=== PATIENT | male | born 1960 | race Caucasian/White ===

== ENCOUNTER 2020-01-04 07:01 | Emergency (ER) | payer OTHER, SELFPAY ==
--- NOTE | ~2020-01-04 | CT_ITS ---
EXAMINATION: CT abdomen pelvis w con EXAM DATE: 01/04/2020 07:55 INDICATION: Abdominal pain, nausea and vomiting, symptoms 3-4 days. TECHNIQUE: Spiral CT of the abdomen and pelvis was performed following intravenous injection of 100 m L Omnipaque 350. Axial, coronal and sagittal images were reviewed. The dose-length product (DLP) fo r this examination was 308.39 mGy-cm. The exposure was tailored according to patient size (auto mA e xposure control), and iterative reconstruction (ASIR) was used as additional dose reduction technique . Comparison is made to prior examination from 07/29/2018. FINDINGS: The liver, spleen, adrenal glands and pancreas are unremarkable. Gallbladder is unremarkab le. No biliary obstruction. Portal and splenic veins are patent. Kidneys enhance symmetrically. T here is no hydronephrosis. The prostate is unremarkable. The bladder is unremarkable. There is no retroperitoneal or pelvic lymphadenopathy. The appendix is normal. The stomach and small bowel are unremarkable. There is expected amount of c olonic stool. No free intraperitoneal gas. The heart is normal in size. There are no pericardial or pleural effusions. The lung bases are unremarkable. There are no osteoblastic or osteolytic les ions identified. IMPRESSION: 1. No acute intra-abdominal findings. Reviewed, dictated and finalized at location B.
--- NOTE | 2020-01-04 07:04 | ED.NAVMDI ---
HPI - Nausea/Vomiting/Diarrhea General Chief complaint: Nausea/Vomiting/Diarrhea Stated complaint: nausea/vomiting Time Seen by Provider: 01/04/20 07:04 Source: patient and family Mode of arrival: ambulatory Limitations: no limitations History of Present Illness HPI Narrative: Patient is a 59-year-old male with a history of chronic pain, hyperlipidemia, osteoarthritis who presents for evaluation of nausea and vomiting. Patient reports abdominal pain throughout the abdomen that began on Friday. Patient has had 4 days of very limited oral intake due to recurrent nausea and vomiting. No blood present in the vomit. No coffee-ground emesis. Patient denies fever, chills, chest pain, cough or shortness of breath. No recent sick contacts. He denies any diarrhea or constipation. No recent food indiscretions, no recent travel. who lives with him at home is otherwise well without symptoms. Patient states this happened once before a year ago and was attributed to acid reflux. Patient reports pain throughout his abdomen which is dull, aching and cramping in nature. No ripping or tearing sensation to the flank. No urinary symptoms. Related Data Home Medications Medication Instructions Recorded Confirmed tramadol 50 mg tablet 50 mg PO TID PRN tablet 11/12/19 Allergies Allergy/AdvReac Type Severity Reaction Status Date / Time poison yanira extract Allergy Mild Rash Verified 11/12/19 12:57 Review of Systems Review of Systems: Narrative: CONSTITUTIONAL: Denies fever, chills, or sweats. ENT: Denies rhinorrhea, congestion, sore throat CARDIOVASCULAR: Denies chest pain RESPIRATORY: Denies cough or dyspnea. GASTROINTESTINAL: Reports abdominal pain, nausea and vomiting GENITOURINARY: Denies dysuria or hematuria. SKIN: Denies rash or itching. MUSCULOSKELETAL: Denies back pain, joint pain, or myalgia. NEUROLOGIC: Denies headache, numbness, or weakness. [facility] Past Medical History Medical History HLD (hyperlipidemia) Family History Family History (Updated 11/25/13 @ 07:13 by DOCTOR UNKNOWN) Father Family history of pancreatic cancer Family history of aortic aneurysm Social History Social History Smoking packs per day: 1 Smoking cigarettes per day: 20.0 Years smoked: 30 Smoking pack-years: 30.00 Smoking status: Former smoker Tobacco type: cigarettes Second hand tobacco smoke exposure: No Smoking end date: 03/31/12 Alcohol intake: current Substance use: current Substance use type: marijuana Gender identity (if verbalized by the patient): Male Exam Narrative: Exam Narrative: GENERAL: Awake, alert, conversant, mildly uncomfortable appearing HEAD: Normocephalic, atraumatic. EYES: PERRLA and EOMI. ENT: Nares clear, no rhinorrhea or epistaxis. Mucous membranes dry NECK: Supple. CHEST: No respiratory distress, breathing even and non labored HEART: Regular rate, sinus rhythm ABDOMEN:Non distended, tender throughout, nonrigid, mild guarding EXTREMITIES: Normal range of motion. No edema. SKIN: Warm, dry, no rash. NEURO:No focal deficits. Alert and oriented x3 Course Vital Signs Vital signs: Vital Signs Temperature 36.8 C 01/04/20 07:11 Pulse Rate 74 01/04/20 07:11 Respiratory Rate 22 H 01/04/20 07:11 Blood Pressure 118/92 H 01/04/20 07:11 Pulse Oximetry 100 01/04/20 07:11 Temperature 36.8 C 01/04/20 07:11 Pulse Rate 64 01/04/20 09:24 Respiratory Rate 18 01/04/20 09:24 Blood Pressure 147/87 H 01/04/20 09:24 Pulse Oximetry 96 01/04/20 09:24 MDM - Nausea/Vomiting/Diarrhea MDM Narrative Medical decision making narrative: Patient presented for evaluation of abdominal pain, nausea vomiting over the past 4 days. At the time of assessment, patient is clinically, mildly dehydrated appearing. No hypotension, tachycardia, patient is afebrile. Patient
[2020-01-04 07:11] VITALS: BP 118/92; PULSE 74; RESP 22; TEMP 36.8; O2SAT 100
[2020-01-04 07:24] LABS: Basophils Absolute Auto 0.1 K/mm3 (0.0-0.1); Basophils Percent Auto 1.6 % (0.2-1.2); Eosinophils Absolute Auto 0.1 K/mm3 (0-0.3); Eosinophils Percent Auto 0.8 % (0-4.4); Hematocrit 47.5 % (42.0-52.0); Hemoglobin 16.9 g/dL (14.0-18.0); Immature Granulocyte Absolute 0.02 K/mm3 (0.00-0.031); Immature Granulocyte Percent A 0.2 % (0-0.5); Lymphocytes Absolute Auto 1.31 K/mm3 (0.9-3.2); Lymphocytes Percent Auto 15.7 % (18.3-44.2); Mean Corpuscular HGB Conc 35.6 g/dl (32-36); Mean Corpuscular Hemoglobin 29.1 pg (26-34); Mean Corpuscular Volume 81.9 fl (80-100); Mean Platelet Volume 10.9 fl (7.4-10.4); Monocytes Absolute Auto 1.1 K/mm3 (0.1-0.6); Monocytes Percent Auto 13.1 % (2.6-8.5); Neutrophils Absolute Auto 5.7 K/mm3 (1.3-6.7); Neutrophils Percent Auto 68.6 % (45.5-73.1); Platelet Count Result 371 k/mm3 (150-375); Red Cell Distribution Width 12.7 % (11.5-14.5); White Blood Count 8.3 K/mm3 (4.5-10.0)
[2020-01-04] MEDS: MORPHINE SULFATE (*CRX) 4 MG/ML INJ IV PUSH (07:28)
[2020-01-04] MEDS: diphenhydrAMINE HCl INJ 50 MG/ML VIAL 25 MG IV PUSH (07:28)
[2020-01-04] MEDS: ONDANSETRON INJ 4 MG/2 ML VIAL IV PUSH (07:28)
[2020-01-04] MEDS: SODIUM CHLORIDE 0.9% IV 1,000 ML 999 ML IV CONT (07:28)
[2020-01-04 07:36] LABS: Alanine Aminotransferase 24 U/L (4-50); Albumin Level 4.6 g/dL (3.5-5.1); Alkaline Phosphatase 81 U/L (38-126); Anion Gap 15 mmol/L (8-16); Aspartate Amino Transferase 31 U/L (17-59); Bilirubin,Total 1.9 mg/dL (0.2-1.3); Blood Urea Nitrogen 36 mg/dL (9-20); Carbon Dioxide 22 mmol/L (22-30); Chloride 99 mmol/L (98-107); Estimated CRCL calculation 61 ml/min; Estimated Glomerular Filt Rate > 60; Glucose 133 mg/dL (75-110); Lipase 88 U/L (23-300); Potassium 3.2 mmol/L (3.4-5.0); Sodium 136 mmol/L (137-145)
--- NOTE | 2020-01-04 07:36 | PC.NURSE ---
pt informed of need for ua, unable to provide at this time, refusing straight.
--- NOTE | 2020-01-04 07:47 | PC.NURSE ---
pt in ct at this time.
[2020-01-04] MEDS: FAMOTIDINE 20 MG/2 ML VIAL IV PUSH (08:11)
[2020-01-04] MEDS: METOCLOPRAMIDE HCL INJ 10 MG/2 ML VIAL IV PUSH (08:11)
[2020-01-04 08:14] VITALS: BP 137/97; PULSE 59; RESP 18; O2SAT 99
--- NOTE | 2020-01-04 08:15 | PC.NURSE ---
PT AGAIN REMINDED OF NEED FOR UA, REFUSING CATH, URINAL AT BEDSIDE.
[2020-01-04 08:30] VITALS: BP 141/106
[2020-01-04 08:47] LABS: Add Urine Microscopic? YES; Appearance Urine Clear (Clear); Bilirubin Urine Negative (Negative); Blood Urine Negative (Negative); Color Urine Yellow (Yellow); Glucose Urine UA Negative (Negative); Ketones Urine 1+ mg/dL (Negative); Leukocyte Esterase Ur Negative LEU/UL (Negative); Mucus Urine Few /lpf; Nitrate Urine Negative (Negative); Protein Urine Negative (Negative); RBC Urine 0-2 /hpf (0-2); Urobilinogen Urine Negative mg/dL (<2.0); WBC Urine 0-3 /hpf
[2020-01-04 08:57] LABS: Specific Grav Ur > 1.060 (1.001-1.035)
[2020-01-04 09:24] VITALS: BP 147/87; PULSE 64; RESP 18; O2SAT 96
[2020-01-04 10:18] VITALS: BP 138/88; PULSE 65; RESP 16; O2SAT 97
== END 2020-01-04 10:19 | disposition home or self-care (01) ==
PROVIDERS: Emergency Provider Emergency Medicine; PCP Family Medicine
DX: E86.0 Dehydration (principal); R11.2 Nausea with vomiting, unspecified; E78.5 Hyperlipidemia, unspecified; M19.90 Unspecified osteoarthritis, unspecified site; Z87.891 Personal history of nicotine dependence; G89.29 Other chronic pain
CPT/HCPCS: 36415; 74177; 80053; 81001; 83690; 85025; 96361; 96365; 96375; 99284; J1200; J2270; J2405; J2765; J3411; J3475; J7030; J7121; Q9967

== ENCOUNTER 2020-09-29 08:01 | Outpatient (CLI) | payer OTHER, SELFPAY ==
--- NOTE | ~2020-09-29 | XR_ITS ---
EXAMINATION: XR barium swallow DATE: 09/29/2020 08:44 INDICATION: Diaphragmatic hernia without obstruction or gangrene. TECHNIQUE: The patient drank thick barium, gas-producing crystals, and thin barium. Fluoroscopy of th e hypopharynx and esophagus was performed. Fluoroscopy exposure time was 0.4 minutes. The total numbe r of images was 215. The dose-area product was 1.2 Gy-cm^2. COMPARISON: CT abdomen and pelvis 01/04/2020 FINDINGS: There is no mass or stricture of the esophagus. Esophageal motility is normal. There is no hiatal hernia. There was no gastroesophageal reflux with provocative maneuvers. IMPRESSION: 1. Normal esophagram. Reviewed, dictated and finalized at location A. IMPRESSION: 1. Normal esophagram.
== END 2020-09-29 08:02 | disposition home or self-care (01) ==
PROVIDERS: PCP Family Medicine; Visit Provider Nurse Practitioner Family
DX: K44.9 Diaphragmatic hernia without obstruction or gangrene (principal); R10.9 Unspecified abdominal pain
CPT/HCPCS: 74220

== ENCOUNTER → 2020-12-01 08:03 | Outpatient (CLI) | payer OTHER, SELFPAY ==
--- NOTE | ~2020-12-01 | CT_ITS ---
EXAMINATION: CT lung screening DATE: 12/01/2020 08:20 INDICATION: Personal history of nicotine dependence, prior smoker with 35 pack year history TECHNIQUE: Computed tomography (CT) of the chest was performed without intravenous contrast. The dose -length product (DLP) was 133.53 mGy-cm. Automated exposure control and iterative reconstruction tech [employer] were employed. COMPARISON: 02/07/2017 FINDINGS: There is a stable 4 mm subpleural nodule in the right middle lobe. A stable 4 mm nodule is present in the left lung apex. No new pulmonary nodules are identified. Calcified pulmonary nodules a re consistent with old granulomatous disease. The lungs are free of acute opacities. There is no pleu ral effusion or pneumothorax. No pathologically enlarged thoracic lymph nodes are identified. The hea rt size is normal. There is calcified coronary artery atherosclerosis. IMPRESSION: 1. Lung-RADS category 2: Benign appearance or behavior. Continue annual screening with noncontrast lo w-dose chest CT in 12 months. Reviewed, dictated and finalized at location A. IMPRESSION: 1. Lung-RADS category 2: Benign appearance or behavior. Continue annual screeni ng with noncontrast low-dose chest CT in 12 months.
== END ==
PROVIDERS: PCP Family Medicine; Visit Provider Nurse Practitioner Family
DX: Z12.2 Encounter for screening for malignant neoplasm of respiratory organs (principal); Z87.891 Personal history of nicotine dependence
CPT/HCPCS: 71271

== ENCOUNTER 2021-12-13 13:02 | Outpatient (CLI) | payer OTHER, SELFPAY ==
--- NOTE | ~2021-12-13 | CT_ITS ---
EXAMINATION:CT lung screening DATE: 12/13/2021 13:33 INDICATION: Lung cancer screening. Current smoker with 36 pack year history. TECHNIQUE: Computed tomography (CT) of the chest was performed without intravenous contrast. Automate d exposure control and iterative reconstruction technique were employed. The dose-length product (DLP ) was 117.82 mGy-cm. COMPARISON: Chest CT 12/01/2020 FINDINGS: There is stable mild scarring at the lung apices. There is mild emphysema. There is stable mild scarring in paraspinal right lower lobe. There is a single 3 mm nodule in right middle lobe. Rubén cified left lung nodules are consistent with old granulomatous disease. No pleural effusion. The hear t size is normal. No pericardial effusion. There is mild thoracic spondylosis. There is mild chronic anterior wedging of multiple vertebral bodies. IMPRESSION: 1. Lung-RADS category 2: Benign appearance or behavior. Continue annual screening with noncontrast lo w-dose chest CT in 12 months. Reviewed, dictated and finalized at location A. IMPRESSION: 1. Lung-RADS category 2: Benign appearance or behavior. Continue annual screeni ng with noncontrast low-dose chest CT in 12 months.
== END 2021-12-13 13:03 | disposition home or self-care (01) ==
LOC: ANHIMG 13:04
PROVIDERS: PCP Family Medicine; Visit Provider Nurse Practitioner Family
DX: Z12.2 Encounter for screening for malignant neoplasm of respiratory organs (principal); Z87.891 Personal history of nicotine dependence
CPT/HCPCS: 71271

== ENCOUNTER → 2021-12-14 11:38 | Outpatient (CLI) | payer OTHER, SELFPAY ==
--- NOTE | ~2021-12-14 | XR_ITS ---
EXAMINATION: XR shoulder RT min 2V INDICATION: Right shoulder pain TECHNIQUE: Four views of the right shoulder are submitted. COMPARISON: None FINDINGS: Normal alignment. No fracture. There is moderate osteoarthritis of the acromioclavicular jamal int. The glenohumeral joint is unremarkable. Soft tissues are unremarkable. Moderate spondylosis is n oted in the lower cervical spine. IMPRESSION: 1. Moderate osteoarthritis of the acromioclavicular joint. Reviewed, dictated and finalized at location B.
== END ==
PROVIDERS: PCP Family Medicine; Visit Provider Nurse Practitioner Family
DX: M19.011 Primary osteoarthritis, right shoulder (principal)
CPT/HCPCS: 73030

== ENCOUNTER 2022-12-16 08:24 | Outpatient (CLI) | payer OTHER, SELFPAY ==
--- NOTE | ~2022-12-16 | CT_ITS ---
CT Scan of the Chest without Contrast: Clinical Indication: Lung cancer screening, smoking history Technique: Contiguous sections were acquired throughout the chest without intravenous contrast. Dose reduction technique was used on this scan by utilizing automated exposure control and iterative recon struction technique. The dose-length product (DLP) was 107.36 mGy-cm. COMPARISON: 12/13/2021, 12/01/2020 Findings: There is no evidence of any significant mediastinal, hilar or axillary lymphadenopathy. The mediastin al soft tissues appear normal. There is no evidence of pleural or pericardial effusion. Stable 3 mm pleural-based nodule right middle lobe. Stable calcified granulomas. Images through the upper abdomen reveal no abnormalities. Impression: Lung RADS 2: Benign appearance. 12 month follow-up screening CT advised. Reviewed, dictated and finalized at [facility]. Impression: Lung RADS 2: Benign appearance. 12 month follow-up screening CT advised.
== END 2022-12-16 08:25 | disposition home or self-care (01) ==
PROVIDERS: PCP Family Medicine; Visit Provider Physician Assistant
DX: Z12.2 Encounter for screening for malignant neoplasm of respiratory organs (principal); Z87.891 Personal history of nicotine dependence
CPT/HCPCS: 71271

== ENCOUNTER 2022-12-27 10:03 | Outpatient (CLI) | payer OTHER, SELFPAY ==
--- NOTE | 2022-12-27 15:34 | WPDPFTINT ---
PFT Procedure Performed PFT Procedure Performed Spirometry with Pre/Post Bronchodilator Plethysmography (Lung Vol) Diffusing Cap (DLCO) Flow Vol Loop PFT Interpretation This is a pulmonary function test with pre and post-bronchodilator spirometry, plethysmography and diffusing capacity. The test was performed and results interpreted in accordance with the 2019 and 2005 ATS/ERS Task Force guidelines respectively using the Global Lung Function Initiative-2012 reference equations. Patient demonstrated good effort and cooperation. Reproducibility criteria were met. The quality of the pre bronchodilator spirometry maneuver was Grade A and post bronchodilator spirometry maneuver was Grade A. Findings: Spirometry: The contour the inspiratory and expiratory flow tracing are normal. The pre bronchodilator FVC is 3.81 L, 108% predicted. The pre bronchodilator FEV1 is 2.65 L, 96% predicted. The pre bronchodilator FEV1: FVC ratio 70%. The post bronchodilator FVC is 3.82 L, representing no change. The post bronchodilator FEV1 is 2.80 L, representing a 5% increase. The post bronchodilator FEV1: FVC ratio is 73%. Plethysmography: The total lung capacity is 6.46 L, 114% predicted. The functional residual capacity is 3.44 L, 106% predicted. The residual volume is 2.17 L, 96% predicted. Diffusing capacity: The diffusing capacity unadjusted for hemoglobin and carboxyhemoglobin is 24.2, 106% predicted. The diffusing capacity adjusted for alveolar volume is 4.16, 99% predicted. Impression: The spirometry is normal without evidence of an obstructive abnormality. There is no significant improvement after inhaling a single dose of albuterol. The lung volumes are normal. The diffusing capacity is normal. There are no prior studies for comparison
== END 2022-12-27 10:04 | disposition home or self-care (01) ==
LOC: ANHPFT 10:03
PROVIDERS: PCP Family Medicine; Visit Provider Physician Assistant
DX: R06.02 Shortness of breath (principal); R07.89 Other chest pain; Z87.891 Personal history of nicotine dependence
CPT/HCPCS: 94060; 94726; 94729

== ENCOUNTER 2023-01-27 15:40 | Outpatient (CLI) | payer OTHER, SELFPAY ==
[2023-01-27 15:58] LABS: Basophils Absolute Auto 0.1 K/mm3 (0.0-0.1); Basophils Percent Auto 1.6 % (0.2-1.2); Eosinophils Absolute Auto 0.1 K/mm3 (0-0.3); Eosinophils Percent Auto 3.8 % (0-4.4); Hemoglobin 12.6 g/dL (14.0-18.0); Immature Granulocyte Absolute 0.01 K/mm3 (0.00-0.031); Immature Granulocyte Percent A 0.3 % (0-0.5); Lymphocytes Absolute Auto 0.92 K/mm3 (0.9-3.2); Lymphocytes Percent Auto 24.7 % (18.3-44.2); Mean Corpuscular HGB Conc 31.5 g/dl (32-36); Mean Corpuscular Hemoglobin 27.1 pg (26-34); Mean Platelet Volume 10.3 fl (7.4-10.4); Monocytes Absolute Auto 0.6 K/mm3 (0.1-0.6); Monocytes Percent Auto 16.1 % (2.6-8.5); Neutrophils Percent Auto 53.5 % (45.5-73.1); Platelet Count Result 284 k/mm3 (150-375); Red Blood Count 4.65 M/mm3 (4.6-6.20); Red Cell Distribution Width 14.9 % (11.5-14.5); White Blood Count 3.7 K/mm3 (4.5-10.0)
[2023-01-27 18:15] LABS: Iron 37 ug/dL (49-181)
[2023-01-27 18:21] LABS: Alanine Aminotransferase 25 U/L (6-50); Albumin Level 4.5 g/dL (3.5-5.1); Alkaline Phosphatase 57 U/L (38-126); Anion Gap 5 mmol/L (8-16); Aspartate Amino Transferase 25 U/L (17-59); Bilirubin,Total 0.4 mg/dL (0.2-1.3); Blood Urea Nitrogen 9 mg/dL (9-20); Calcium 9.3 mg/dL (8.4-10.2); Carbon Dioxide 29 mmol/L (22-30); Chloride 106 mmol/L (98-107); Estimated Glomerular Filt Rate > 60; Glucose 87 mg/dL (65-110); Lactate Dehydrogenase 168 U/L (120-246); Potassium 4.1 mmol/L (3.4-5.0); Sodium 140 mmol/L (137-145)
[2023-01-27 18:25] LABS: Percent Iron Saturation 9 % (20-50)
[2023-01-30 11:47] LABS: Methylmalonic Acid 151 nmol/L (87-318)
[2023-01-31 05:17] LABS: ANA Pattern Nuclear, Speckled; ANA Titer 1:40 (Negative)
== END 2023-01-27 15:41 | disposition home or self-care (01) ==
LOC: ANHLAB 15:42
PROVIDERS: PCP Family Medicine; Visit Provider Internal Medicine Hematology & Oncology
DX: D72.819 Decreased white blood cell count, unspecified (principal); D64.9 Anemia, unspecified
CPT/HCPCS: 36415; 80053; 82607; 82728; 82746; 83540; 83550; 83615; 83921; 85025; 86038; 86039

== ENCOUNTER → 2023-01-30 10:07 | Outpatient (CLI) | payer OTHER, SELFPAY ==
--- NOTE | ~2023-01-30 | US_ITS ---
EXAMINATION: US abdomen complete DATE: 01/30/2023 10:34 INDICATION: Leukopenia TECHNIQUE: Multiple grayscale and Doppler ultrasound images of the abdomen were obtained. COMPARISON: 02/07/2017 FINDINGS: The head and body of the pancreas are normal. The pancreatic tail is obscured by bowel gas. The liver is normal with normal echogenicity and echotexture. No surface nodularity. Normal hepatope krystal flow in the main portal vein. The gallbladder is normal with no abnormal wall thickening, pericho lecystic fluid or stones. The normal common bile duct measures 3 mm. There was no sonographic Salvador sign. The visualized portions of the aorta and inferior vena cava are normal. The spleen is normal in appearance and measures 10.1 cm. The right kidney measures 9.6 x 4.8 x 5.7 cm . The left kidney measures 10 x 5.2 x 5.8 cm. The kidneys demonstrate normal parenchymal echogenicity . There is no hydronephrosis. IMPRESSION: 1. No sonographic correlate for the patient's symptoms. Reviewed, dictated and finalized at location A.
== END ==
PROVIDERS: PCP Internal Medicine Hematology & Oncology; Visit Provider Internal Medicine Hematology & Oncology
DX: D72.819 Decreased white blood cell count, unspecified (principal)
CPT/HCPCS: 76700

== ENCOUNTER 2023-08-08 05:51 | Day surgery (SDC) | payer OTHER, SELFPAY ==
[2023-07-23 06:25] VITALS: BMI 28.6
[2023-07-24 14:20] VITALS: BMI 27.4
--- NOTE | 2023-08-05 12:28 | PM.HPGS ---
History of Present Illness History of Present Illness Consent: Risks, benefits, and alternatives have been discussed and questions answered. Patient agrees to proceed with procedure. Chief complaint: Personal hx of colon polyps and other diseases of Narrative: Monty Rodarte is a 63 year old male with A personal history of polyps. Review of Systems Review of Systems: All systems reviewed & are unremarkable except as noted in HPI and below PMFSH Past Medical History Medical History Abdominal pain H. pylori infection Hiatal hernia HLD (hyperlipidemia) Marijuana use Family History Family History Father Family history of pancreatic cancer Family history of aortic aneurysm Social History Social History Smoking packs per day: 1 Smoking cigarettes per day: 20.0 Years smoked: 30 Smoking pack-years: 30.00 Smoking status: Former smoker Tobacco type: cigarettes Second hand tobacco smoke exposure: No Smoking end date: 03/31/12 Alcohol intake: current Drinks per week: 6 Substance use: current Substance use type: marijuana Last use: last night Living arrangements: with family Occupation/Education: occupation Gender identity (if verbalized by the patient): Male Spiritual care concerns: No Meds Home Medications and Allergies Home Medications Medication Instructions Recorded Confirmed Type atorvastatin 20 mg tablet 20 mg PO DAILY #90 tabs 02/25/23 08/08/23 Rx omeprazole 40 mg capsule,delayed 40 mg PO QAM #90 caps 02/25/23 08/08/23 Rx release acetaminophen 500 mg tablet 1,000 mg PO Q6H PRN Pain 07/24/23 08/08/23 History (Acetaminophen Extra Strength) ascorbic acid (vitamin C) 500 mg 500 mg PO DAILY 07/24/23 08/08/23 History tablet aspirin 81 mg tablet 81 mg PO DAILY 07/24/23 08/08/23 History cetirizine 10 mg tablet (Zyrtec) 10 mg PO DAILY 07/24/23 08/08/23 History ferrous sulfate 325 mg (65 mg 325 mg PO DAILY 07/24/23 08/08/23 History iron) tablet mecobalamin (vitamin B12) 2,500 2,500 mcg PO DAILY 07/24/23 08/08/23 History mcg chewable tablet Allergies Allergy/AdvReac Type Severity Reaction Status Date / Time poison yanira extract Allergy Mild Rash Verified 08/08/23 06:12 Exam Resp: Auscultation: clear to auscultation bilaterally Cardio: Rate: regular rate Rhythm: regular rhythm GI: GI Palp: Yes Soft to palpation and No Tenderness to palpation present (GI)
[2023-08-08 06:13] VITALS: BP 118/89; PULSE 61; RESP 18; TEMP 37.1; O2SAT 99
[2023-08-08] MEDS: LACTATED RINGERS 1,000 ML 150 ML IV CONT (06:18)
--- NOTE | 2023-08-08 07:07 | WPDANESEPPF ---
Anes - Initial Pre Proc Eval Procedure: Operation Date: 08/08/23 07:30 Proposed Procedures p Diagnostic Colonoscopy - Antony Dean MD Date/Time: 08/08/23 07:07 Surgeon: Antony Dean MD Pre Op Diagnosis: Personal hx of colon polyps and other diseases of Patient Data Age: 63 Gender: M Height: 1.73 m Weight: 81.3 kg Last Vital Signs Temp 37.1 C 08/08/23 06:13 Pulse 61 08/08/23 06:13 Resp 18 08/08/23 06:13 BP 118/89 08/08/23 06:13 Pulse Ox 99 08/08/23 06:13 O2 Del Method Room Air 08/08/23 06:13 Allergies Allergy/AdvReac Type Severity Reaction Status Date / Time poison yanira extract Allergy Mild Rash Verified 08/08/23 06:12 Home Medications Medication Instructions Recorded Confirmed Type atorvastatin 20 mg tablet 20 mg PO DAILY #90 tabs 02/25/23 08/08/23 Rx omeprazole 40 mg capsule,delayed 40 mg PO QAM #90 caps 02/25/23 08/08/23 Rx release acetaminophen 500 mg tablet 1,000 mg PO Q6H PRN Pain 07/24/23 08/08/23 History (Acetaminophen Extra Strength) ascorbic acid (vitamin C) 500 mg 500 mg PO DAILY 07/24/23 08/08/23 History tablet aspirin 81 mg tablet 81 mg PO DAILY 07/24/23 08/08/23 History cetirizine 10 mg tablet (Zyrtec) 10 mg PO DAILY 07/24/23 08/08/23 History ferrous sulfate 325 mg (65 mg 325 mg PO DAILY 07/24/23 08/08/23 History iron) tablet mecobalamin (vitamin B12) 2,500 2,500 mcg PO DAILY 07/24/23 08/08/23 History mcg chewable tablet Patient hx anesthesia problems: none Family hx anesthesia problems: none Results Review: All pre-operative results and documents have been reviewed as part of the pre-operative evaluation. [facility] Past Medical History Medical History Abdominal pain H. pylori infection Hiatal hernia HLD (hyperlipidemia) Marijuana use Family History Family History Father Family history of pancreatic cancer Family history of aortic aneurysm Social History Social History Smoking packs per day: 1 Smoking cigarettes per day: 20.0 Years smoked: 30 Smoking pack-years: 30.00 Smoking status: Former smoker Tobacco type: cigarettes Second hand tobacco smoke exposure: No Smoking end date: 03/31/12 Alcohol intake: current Drinks per week: 6 Substance use: current Substance use type: marijuana Last use: last night Living arrangements: with family Occupation/Education: occupation Gender identity (if verbalized by the patient): Male Spiritual care concerns: No Anes - Eval Final PreProcedure Day of Procedure 08/08/23 07:07 Patient weight: overweight Heart: regular rate and rhythm Lungs: clear to auscultation Airway: Mallampati scale class II Neurological: alert and oriented Last oral intake: >/= 8 hours ASA classification: III Emergent: no Anesthetic plan: proceed Anesthesia type and monitoring: general GIVS and standard monitoring Results Review: All pre-operative results and documents have been reviewed as part of the pre-operative evaluation. Informed Consent: The patient's anesthetic plan and its attendant risks and benefits were discussed with the patient/family/POA. Questions were solicited and answers provided to the satisfaction of the patient/family/POA.
[2023-08-08 07:33] VITALS: BP 110/98; PULSE 63; RESP 14; O2SAT 95
[2023-08-08 07:43] VITALS: BP 107/79; PULSE 56; RESP 16; O2SAT 95
--- NOTE | 2023-08-08 07:43 | WPDANESPN ---
Anes - Prog Note Post-Op Date/Time: 08/08/23 07:43 Cardiovascular status: normal Respiratory status: normal Airway patency: baseline Mental status: baseline Post-Op hydration status: normal Vital Signs: Last Vital Signs Temp 37.1 C 08/08/23 06:13 Pulse 63 08/08/23 07:33 Resp 14 08/08/23 07:33 BP 110/98 H 08/08/23 07:33 Pulse Ox 95 08/08/23 07:33 O2 Del Method Room Air 08/08/23 07:33 Pain Score (VAS): 0/10 I/O: Intake & Output 08/07/23 08/07/23 08/08/23 15:59 23:59 07:59 Intake Total 500 Balance 500 Patient Feedback: Patient satisfied with anesthetic care.
[2023-08-08 07:53] VITALS: BP 112/83; PULSE 59; RESP 16; O2SAT 99
== END 2023-08-08 08:05 | disposition home or self-care (01) ==
PROVIDERS: PCP Family Medicine; Visit Provider Internal Medicine Gastroenterology
PROC: 0DJD8ZZ Inspection of Lower Intestinal Tract, Via Natural or Artificial Opening Endoscopic (ICD-10-PCS; CPT 45378; principal; 2023-08-08 07:30)
DX: Z86.010 Personal history of colon polyps (principal); Z12.11 Encounter for screening for malignant neoplasm of colon; K62.1 Rectal polyp
CPT/HCPCS: 45380

== ENCOUNTER 2023-08-08 11:55 | Outpatient (NON) | payer OTHER, SELFPAY | END 2023-08-08 11:56 | disposition home or self-care (01) | LOC: ANHLAB 08-11 11:56 | PROVIDERS: PCP Family Medicine; Visit Provider Internal Medicine Gastroenterology | DX: D12.8 Benign neoplasm of rectum (principal); Z86.010 Personal history of colon polyps | CPT/HCPCS: 88305 ==

== ENCOUNTER 2023-12-22 12:24 | Outpatient (CLI) | payer OTHER, SELFPAY ==
--- NOTE | ~2023-12-22 | CT_ITS ---
CT Scan of the Chest without Contrast: Clinical Indication: Lung cancer screening, nicotine dependence Technique: Contiguous sections were acquired throughout the chest without intravenous contrast. Dose reduction technique was used on this scan by utilizing automated exposure control and iterative recon struction technique. The dose-length product (DLP) was 95.94 mGy-cm. COMPARISON: 12/16/2022 Findings: There is no evidence of any significant mediastinal, hilar or axillary lymphadenopathy. The mediastin al soft tissues appear normal. There is no evidence of pleural or pericardial effusion. Stable calcified left upper lobe granuloma. Stable 3 mm pleural-based nodule right middle lobe. Images through the upper abdomen reveal no abnormalities. Impression: Lung RADS 2: Benign appearance. 12 month follow-up screening CT advised. Reviewed, dictated and finalized at [facility]. Impression: Lung RADS 2: Benign appearance. 12 month follow-up screening CT advised.
== END 2023-12-22 12:25 | disposition home or self-care (01) ==
LOC: ANHIMG 12:25
PROVIDERS: PCP Family Medicine; Visit Provider Physician Assistant
DX: Z12.2 Encounter for screening for malignant neoplasm of respiratory organs (principal); Z87.891 Personal history of nicotine dependence
CPT/HCPCS: 71271

== ENCOUNTER 2024-02-11 09:04 | Outpatient (CLI) | payer OTHER, SELFPAY ==
--- NOTE | ~2024-02-11 | US_ITS ---
EXAMINATION: US abdomen limited DATE: 02/11/2024 10:23 INDICATION: Right upper quadrant abdominal pain. TECHNIQUE: Multiple grayscale and Doppler ultrasound images of the abdomen were obtained. COMPARISON: Ultrasound abdomen 01/30/2023, CT abdomen and pelvis 01/04/2020 FINDINGS: The visualized portions of the head, body, and tail of the pancreas are normal. The liver i s normal without focal lesion. There is normal flow in main portal vein. The gallbladder is normal in size. No gallstones or gallbladder wall thickening. There is no sonographic Salvador's sign. The commo n duct is normal and measures 3 mm. IMPRESSION: 1. Normal right upper quadrant ultrasound. Reviewed, dictated and finalized at location A. [employer]
== END 2024-02-11 09:05 | disposition home or self-care (01) ==
LOC: ANHIMG 09:05
PROVIDERS: PCP Family Medicine; Visit Provider Physician Assistant
DX: R10.11 Right upper quadrant pain (principal); R11.0 Nausea
CPT/HCPCS: 76705

== ENCOUNTER 2024-02-20 07:37 | Outpatient (CLI) | payer OTHER, SELFPAY ==
--- NOTE | ~2024-02-20 | NM_ITS ---
EXAMINATION: NM hepatobiliary wo pharm DATE: 02/20/2024 09:55 INDICATION: Right upper quadrant abdominal pain COMPARISON: None. TECHNIQUE: 5 mCi Tc-99m mebrofenin (Choletec) was administered intravenously. Scintigraphic images o f the abdomen were obtained for one hour. At the 1 hour time point, the patient drank 8 oz Ensure, an d imaging was continued for 60 minutes. Gallbladder ejection fraction was calculated by the technolog ist. FINDINGS: There is normal clearance of radiotracer from the blood pool. There is homogeneous tracer u ptake by the liver. Activity progresses to the bowel and gallbladder. The gallbladder ejection fract ion (GBEF) is 31%. Note that with this technique, normal GBEF >= 33%. IMPRESSION: 1. Abnormally decreased gallbladder ejection fraction consistent with gallbladder dysfunction or chr onic cholecystitis in the appropriate clinical setting. Reviewed, dictated and finalized at location B. [employer] IMPRESSION: 1. Abnormally decreased gallbladder ejection fraction consistent with gallblad zeeshan dysfunction or chronic cholecystitis in the appropriate clinical setting.
== END 2024-02-20 07:38 | disposition home or self-care (01) ==
PROVIDERS: PCP Family Medicine; Visit Provider Physician Assistant
DX: R10.11 Right upper quadrant pain (principal)
CPT/HCPCS: 78226; A9537

== ENCOUNTER 2024-03-22 07:25 | Day surgery (SDC) | payer MEDICARE, SELFPAY ==
[2024-03-08 14:12] VITALS: BMI 27.4
[2024-03-22 08:03] VITALS: BMI 27.3
[2024-03-22 08:04] VITALS: BP 105/80; PULSE 62; RESP 18; TEMP 36.9; O2SAT 97
--- NOTE | 2024-03-22 08:10 | WPDANESEPPF ---
Anes - Initial Pre Proc Eval Procedure: Operation Date: 03/22/24 09:30 Proposed Procedures p Esophagogastroduodenoscopy - Navarro Trujillo DO Date/Time: 03/22/24 08:10 Surgeon: Navarro Trujillo DO Pre Op Diagnosis: Right Upper Quadrant Pain, Gerd Patient Data Age: 64 Gender: M Height: 1.73 m Weight: 81.5 kg Last Vital Signs Temp 36.9 C 03/22/24 08:04 Pulse 62 03/22/24 08:04 Resp 18 03/22/24 08:04 BP 105/80 03/22/24 08:04 Pulse Ox 97 03/22/24 08:04 O2 Del Method Room Air 03/22/24 08:04 Allergies Allergy/AdvReac Type Severity Reaction Status Date / Time poison yanira extract Allergy Mild Rash Verified 03/22/24 07:52 Home Medications ?Medication ?Instructions ?Recorded ?Confirmed ?Type acetaminophen 500 mg tablet 1,000 mg PO Q6H PRN Pain 07/24/23 03/22/24 History (Acetaminophen Extra Strength) ascorbic acid (vitamin C) 500 mg 500 mg PO DAILY 07/24/23 03/22/24 History tablet aspirin 81 mg tablet 81 mg PO DAILY 07/24/23 03/22/24 History cetirizine 10 mg tablet (Zyrtec) 10 mg PO DAILY 07/24/23 03/22/24 History ferrous sulfate 325 mg (65 mg 325 mg PO DAILY 07/24/23 03/22/24 History iron) tablet mecobalamin (vitamin B12) 2,500 2,500 mcg PO DAILY 07/24/23 03/22/24 History mcg chewable tablet atorvastatin 20 mg tablet 20 mg PO DAILY #90 tabs 11/24/23 03/22/24 Rx omeprazole 40 mg capsule,delayed 40 mg PO QAM #90 caps 11/24/23 03/22/24 Rx release Patient hx anesthesia problems: none Family hx anesthesia problems: none Results Review: All pre-operative results and documents have been reviewed as part of the pre-operative evaluation. [facility] Past Medical History Medical History (Updated 03/08/24 @ 14:05 by Shazia Haddad) Emphysema, unspecified Arthritis Anemia Allergies Marijuana use Hiatal hernia Abdominal pain H. pylori infection HLD (hyperlipidemia) Family History Family History Father Family history of pancreatic cancer Family history of aortic aneurysm Social History Social History (Updated 03/08/24 @ 13:36 by Sarah De La Fuente MA) Smoking packs per day: 1 Smoking cigarettes per day: 20.0 Years smoked: 30 Smoking pack-years: 30.00 Smoking status: Former smoker Tobacco type: cigarettes Second hand tobacco smoke exposure: No Smoking end date: 03/31/12 Alcohol intake: current Drinks per week: 6 Substance use: former Substance use type: marijuana Last use: last night Do You Feel Safe in your Home?: Yes Lack of Transportation: No Lack of Food: Never True Current Housing: I Have Housing Concerned About Future Housing: No Difficulty Paying Gas/Electric Bills: No Difficulty Paying for Meds: No Currently Unemployed: No Education: High School Diploma/GED Difficulty w/ Childcare or Family Care: No Living arrangements: with family Occupation/Education: occupation Gender identity (if verbalized by the patient): Male Spiritual care concerns: No Anes - Eval Final PreProcedure Day of Procedure 03/22/24 08:10 Patient weight: overweight Heart: regular rate and rhythm Lungs: clear to auscultation Airway: Mallampati scale class 1 Neurological: alert and oriented Last oral intake: >/= 8 hours ASA classification: III Emergent: no Anesthetic plan: proceed Anesthesia type and monitoring: general GIVS and standard monitoring Results Review: All pre-operative results and documents have been reviewed as part of the pre-operative evaluation. Informed Consent: The patient's anesthetic plan and its attendant risks and benefits were discussed with the patient/family/POA. Questions were solicited and answers provided to the satisfaction of the patient/family/POA.
[2024-03-22] MEDS: LACTATED RINGERS 1,000 ML 150 ML IV CONT (08:25)
--- NOTE | 2024-03-22 08:47 | P.HP_ITS ---
H&P: HPI History of Present Illness Date/Time: 03/22/24 08:47 Chief Complaint: GERD, right upper quadrant pain Narrative: this is a 64-year-old man who presents for EGD. He has been experiencing frequent right upper quadrant pains and symptoms. He has never had EGD before. He has had workup on his gallbladder which shows poor gallbladder ejection fraction but no other abnormalities. Review of Systems Review of Systems: All systems reviewed & are unremarkable except as noted in HPI and below Constitutional: Constitutional: Denies chills, Denies fever(s), Denies headache(s) and Denies weight loss Eyes: Eyes: Denies change in vision ENT: Denies dizziness, Denies headache(s), Denies neck mass and Denies throat swelling Cardiovascular: Cardiovascular: Denies chest pain, Denies lightheadedness and Denies dyspnea Respiratory: Respiratory: Denies cough, Denies dyspnea and Denies wheezing Gastrointestinal: Gastrointestinal: Denies abdominal pain, Denies change in bowel habits, Denies nausea and Denies vomiting Genitourinary: Genitourinary: Denies hematuria and Denies dysuria Musculoskeletal: Musculoskeletal: Reports as per HPI Integumentary/Breasts: Skin/Breast: Reports as per HPI Neurologic: Denies dizziness and Denies headache(s) Allergic/Immunologic: Allergic/Immunologic: Denies throat swelling and Denies wheezing [facility] Past Medical History Medical History (Updated 03/08/24 @ 14:05 by Shazia Haddad) Emphysema, unspecified Arthritis Anemia Allergies Marijuana use Hiatal hernia Abdominal pain H. pylori infection HLD (hyperlipidemia) Family History Family History Father Family history of pancreatic cancer Family history of aortic aneurysm Social History Social History (Updated 03/08/24 @ 13:36 by Sarah De La Fuente MA) Smoking packs per day: 1 Smoking cigarettes per day: 20.0 Years smoked: 30 Smoking pack-years: 30.00 Smoking status: Former smoker Tobacco type: cigarettes Second hand tobacco smoke exposure: No Smoking end date: 03/31/12 Alcohol intake: current Drinks per week: 6 Substance use: former Substance use type: marijuana Last use: last night Do You Feel Safe in your Home?: Yes Lack of Transportation: No Lack of Food: Never True Current Housing: I Have Housing Concerned About Future Housing: No Difficulty Paying Gas/Electric Bills: No Difficulty Paying for Meds: No Currently Unemployed: No Education: High School Diploma/GED Difficulty w/ Childcare or Family Care: No Living arrangements: with family Occupation/Education: occupation Gender identity (if verbalized by the patient): Male Spiritual care concerns: No Meds Home Medications and Allergies Home Medications ?Medication ?Instructions ?Recorded ?Confirmed ?Type acetaminophen 500 mg tablet 1,000 mg PO Q6H PRN Pain 07/24/23 03/22/24 History (Acetaminophen Extra Strength) ascorbic acid (vitamin C) 500 mg 500 mg PO DAILY 07/24/23 03/22/24 History tablet aspirin 81 mg tablet 81 mg PO DAILY 07/24/23 03/22/24 History cetirizine 10 mg tablet (Zyrtec) 10 mg PO DAILY 07/24/23 03/22/24 History ferrous sulfate 325 mg (65 mg 325 mg PO DAILY 07/24/23 03/22/24 History iron) tablet mecobalamin (vitamin B12) 2,500 2,500 mcg PO DAILY 07/24/23 03/22/24 History mcg chewable tablet atorvastatin 20 mg tablet 20 mg PO DAILY #90 tabs 11/24/23 03/22/24 Rx omeprazole 40 mg capsule,delayed 40 mg PO QAM #90 caps 11/24/23 03/22/24 Rx release Allergies Allergy/AdvReac Type Severity Reaction Status Date / Time poison yanira extract Allergy Mild Rash Verified 03/22/24 07:52 Vital Signs Vital Signs - 24 hr 03/22/24 08:04 Temperature 98.5 F Pulse Rate 62 Respiratory Rate 18 Blood Pressure 105/80 Pulse Oximetry 97 Oxygen Delivery Room Air Exam Const: General: no acute distress and alert Orientation/consciousness: patient oriented x3 HENMT: Head: normocephalic and atraumatic Ears: hearing grossly normal bilaterally Face/Nose/Sinus: Normal nares present Mouth: Yes Normal oral and palatal mucosa present Eyes: Periorbital: periorbital findings normal Sclera: sclerae normal EOM: EOMs intact bilaterally Neck: Neck: normal visual inspection, no lymphadenopathy and trachea midline Chest: Chest palpation & inspection: normal inspection of the chest Resp: Effort & Inspection: normal respiratory effort Auscultation: clear to auscultation bilaterally Cardio: Jugular venous distension: no JVD Rate: regular rate Rhythm: regular rhythm Heart sounds: S1 normal heart sound present and S2 normal hea rt sound present Peripheral pulses: Peripheral pulses 2+ throughout GI: Inspection: normal to inspection GI Palp: Yes Soft to palpation, No Tenderness to palpation present (GI), No Guarding due to palpation present (GI) and No Rebound tenderness present Percussion: Yes normal to percussion Auscultation: normal bowel sounds : General: Yes no CVA tenderness Back/Spine/Pelvis: Back: no CVA tenderness Neuro: General: patient oriented x3, no focal motor deficits and CN's II-XI intact bilaterally Cognition (Neuro): normal cognition Speech: normal speech Motor exam (neuro): 5/5 motor strength present throughout Extrem: General: capillary refill normal and no clubbing, cyanosis or edema Assessment and Plan Assessment and plan (1) GERD (gastroesophageal reflux disease): Qualifiers: Esophagitis presence: without esophagitis Qualified Code(s): K21.9 - Gastro-esophageal reflux disease without esophagitis Code(s): K21.9 - Gastro-esophageal reflux disease without esophagitis Status: Acute Assessment and Plan: I have recommended EGD. I have discussed the procedure, risks, benefits, and alternatives. Questions were answered. Patient is agreeable to proceed. (2) Right upper quadrant abdominal pain: Code(s): R10.11 - Right upper quadrant pain Status: Acute
[2024-03-22 09:05] VITALS: BP 117/83; PULSE 75; RESP 20; O2SAT 97
[2024-03-22 09:14] VITALS: BP 105/77; PULSE 63; RESP 16; O2SAT 99
[2024-03-22 09:24] VITALS: BP 102/85; PULSE 63; RESP 15; O2SAT 95
--- NOTE | 2024-03-22 09:45 | WPDANESPN ---
Anes - Prog Note Post-Op Date/Time: 03/22/24 09:45 Cardiovascular status: normal Respiratory status: normal Airway patency: baseline Mental status: baseline Post-Op hydration status: normal Vital Signs: Last Vital Signs Temp 36.9 C 03/22/24 08:04 Pulse 63 03/22/24 09:24 Resp 15 03/22/24 09:24 BP 102/85 03/22/24 09:24 Pulse Ox 95 03/22/24 09:24 O2 Del Method Room Air 03/22/24 09:24 Pain Score (VAS): 0 I/O: Intake & Output 03/21/24 03/22/24 03/22/24 23:59 07:59 15:59 Intake Total 400 Balance 400 Post-procedural complaints: none Patient Feedback: Patient satisfied with anesthetic care. Other Findings: Patient vital signs back to baseline. Patient denies nausea and vomiting. Patient's pain under control. Patient OK for discharge.
== END 2024-03-22 09:41 | disposition home or self-care (01) ==
PROVIDERS: PCP Family Medicine; Visit Provider Surgery
PROC: 0DJ08ZZ Inspection of Upper Intestinal Tract, Via Natural or Artificial Opening Endoscopic (ICD-10-PCS; CPT 43235; principal; 2024-03-22 09:30)
DX: K21.9 Gastro-esophageal reflux disease without esophagitis (principal); R10.11 Right upper quadrant pain; K29.70 Gastritis, unspecified, without bleeding
CPT/HCPCS: 43239

== ENCOUNTER 2024-03-22 08:54 | Outpatient (NON) | payer MEDICARE, SELFPAY ==
--- OUTSIDE RECORDS SUMMARY | 2024-03-30 10:24 | XMS_ITS | Encounter Summary ---
Author Organization [facility] Address [address] [place] [address] Care Team Providers Care Cinder Snapper Name Role Phone Primo Hightower MD Primary Care Provider [phone] Encounter Details Date Type Department Care Team (Late st Contact Info) Description 04/30/2023 External Device Data STL ABSTRACTION Provider, Abstract NO ADDRESS ON FILE Social History Tobacco Use Types Packs/Day Years Used Date Smoking Tobacco: Former Cigarettes Smokeless Tobacco: Never Alcohol Use Standard Drinks/Week Comments Yes 0 (1 standard drink = 0.6 oz pur e alcohol) Sex and Gender Information Value Date Recorded Sex Assigned at Not on file Gender Identity Not on file Sexual Orientation Not on file documented as of this encounter Plan of Treatment Upcoming Encounters Date Type Department Care Team (Late st Contact Info) Description 05/12/2024 11:30 AM DOT ETCHER APPRENTICE Office Visit [facility] Oncology and Hematology - [place] [address] [place] [address] [address] [place] [address] Cristino Cason MD [address] [facility] [address] [place] [address] documented as of this encounter Visit Diagnoses Not on filedocumented in this encounter Care Teams Cinder Snapper Relationship Specialty Start Date End Date Primo Hightower MD [address] [facility] 120 [place] [address] PCP - General Family Practice 01/27/23 documented as of this encounter
--- OUTSIDE RECORDS SUMMARY | 2024-03-30 10:24 | XMS_ITS | Encounter Summary ---
Author Organization [facility] Address [address] [place] [address] Care Team Providers Care Museum Service Scheduler Name Role Phone Primo Hightower MD Primary Care Provider Encounter Details Date Type Department Care Team (Late st Contact Info) Description 02/02/2024 External Device Data STL ABSTRACTION Provider, Abstract [...] st Contact Info) Description 05/12/2024 11:30 AM DYNAMICS AX TECHNICAL ARCHITECT Office Visit [facility] Oncology and Hematology - [place] [address] [place] [address] [address] [place] [address] Cristino Cason MD [address] [facility] [address] [place] [address] documented as of this encounter Visit Diagnoses Not on filedocumented in this encounter Care Teams Museum Service Scheduler Relationship Specialty Start Date End Date Primo Hightower MD [address] [facility] 120 [place] [address] PCP - General Family Practice 01/27/23 documented as of this encounter
--- OUTSIDE RECORDS SUMMARY | 2024-03-30 10:24 | XMS_ITS | Encounter Summary ---
Author Organization [facility] Address [address] [place] [address] Care Team Providers Care Trade Marker Name Role Phone Primo Hightower MD Primary Care Provider [phone] Encounter Details Date Type Department Care Team (Late st Contact Info) Description 07/15/2023 External Device Data STL ABSTRACTION Provider, Abstract [...] st Contact Info) Description 05/12/2024 11:30 AM UNIFIED COMMUNICATIONS ENGINEER Office Visit [facility] Oncology and Hematology - [place] [address] [place] [address] [address] [place] [address] Cristino Cason MD [address] [facility] [address] [place] [address] documented as of this encounter Visit Diagnoses Not on filedocumented in this encounter Care Teams Trade Marker Relationship Specialty Start Date End Date Primo Hightower MD [address] [facility] 120 [place] [address] PCP - General Family Practice 01/27/23 documented as of this encounter
--- OUTSIDE RECORDS SUMMARY | 2024-03-30 10:24 | XMS_ITS | Encounter Summary ---
Author Organization [employer] Address [address] [place] [address] Care Team Providers Care Military Exchange Wireless Manager Name Role Phone Primo Hightower MD Primary Care Provider Encounter Details Date Type Department Care Team (Late st Contact Info) Description 10/14/2023 External Device Data STL ABSTRACTION Provider, Abstract [...] st Contact Info) Description 05/12/2024 11:30 AM BARBERING INSTRUCTOR Office Visit [facility] Oncology and Hematology - [place] [address] [place] [address] [address] [place] [address] Cristino Cason MD [address] [facility] [address] [place] [address] documented as of this encounter Visit Diagnoses Not on filedocumented in this encounter Care Teams Military Exchange Wireless Manager Relationship Specialty Start Date End Date Primo Hightower MD [address] [facility] 120 [place] [address] PCP - General Family Practice 01/27/23 documented as of this encounter
--- OUTSIDE RECORDS SUMMARY | 2024-03-30 10:24 | XMS_ITS | Encounter Summary ---
Author Organization [facility] Address [address] [place] [address] Care Team Providers Care Pediatrician Name Role Phone Primo Hightower MD Primary Care Provider [phone] Encounter Details Date Type Department Care Team (Late st Contact Info) Description 09/30/2023 External Device Data STL ABSTRACTION Provider, Abstract [...] st Contact Info) Description 05/12/2024 11:30 AM PLATFORM MAN [facility] Oncology [facility] Hematology - [place] [address] [place] [address] [address] [place] [address] Cristino Cason MD [address] [facility] [address] [place] [address] documented as of this encounter Visit Diagnoses Not on filedocumented in this encounter Care Teams Pediatrician Relationship Specialty Start Date End Date Primo Hightower MD [address] [facility] 120 [place] [address] PCP - General Family Practice 01/27/23 documented as of this encounter
--- OUTSIDE RECORDS SUMMARY | 2024-03-30 10:24 | XMS_ITS | Encounter Summary ---
Author Organization [facility] Address [address] [place] [address] Care Team Providers Care Occupational Health Physiotherapist Name Role Phone Primo Hightower MD Primary Care Provider [phone] Encounter Details Date Type Department Care Team (Late st Contact Info) Description 06/13/2023 External Device Data STL ABSTRACTION Provider, Abstract [...] st Contact Info) Description 05/12/2024 11:30 AM CAUSTIC STRENGTH INSPECTOR Office Visit [facility] Oncology and Hematology - [place] [address] [place] [address] 200 [place] [address] Cristino Cason MD [address] [facility] [address] [place] [address] documented as of this encounter Visit Diagnoses Not on filedocumented in this encounter Care Teams Occupational Health Physiotherapist Relationship Specialty Start Date End Date Primo Hightower MD [address] [facility] 120 [place] [address] PCP - General Family Practice 01/27/23 documented as of this encounter
--- OUTSIDE RECORDS SUMMARY | 2024-03-30 10:24 | XMS_ITS | Encounter Summary ---
Author Organization [facility] Address [address] [place] [address] Care Team Providers Care Assistant Manager Of Operations Name Role Phone Primo Hightower MD Primary Care Provider [phone] Encounter Details Date Type Department Care Team (Late st Contact Info) Description 12/02/2023 External Device Data STL ABSTRACTION Provider, Abstract [...] st Contact Info) Description 05/12/2024 11:30 AM CLINICAL REVIEW SPECIALIST Office Visit [facility] Oncology and Hematology - [place] [address] [place] [address] [address] [place] [address] Cristino Cason MD [address] [facility] [address] [place] [address] documented as of this encounter Visit Diagnoses Not on filedocumented in this encounter Care Teams Assistant Manager Of Operations Relationship Specialty Start Date End Date Primo Hightower MD [address] [facility] 120 [place] [address] PCP - General Family Practice 01/27/23 documented as of this encounter
--- OUTSIDE RECORDS SUMMARY | 2024-03-30 10:24 | XMS_ITS | Encounter Summary ---
Author Organization [facility] Address [address] [place] [address] Care Team Providers Care Final Assembly Inspector Name Role Phone Primo Hightower MD Primary Care Provider [phone] Encounter Details Date Type Department Care Team (Late st Contact Info) Description 05/02/2023 External Device Data STL ABSTRACTION Provider, Abstract [...] st Contact Info) Description 05/12/2024 11:30 AM PLASTIC TILE SETTER Office Visit [facility] Oncology and Hematology - [place] [address] [place] [address] [address] [place] [address] Cristino Cason MD [address] [facility] [address] [place] [address] documented as of this encounter Visit Diagnoses Not on filedocumented in this encounter Care Teams Final Assembly Inspector Relationship Specialty Start Date End Date Primo Hightower MD [address] [facility] 120 [place] [address] PCP - General Family Practice 01/27/23 documented as of this encounter
--- OUTSIDE RECORDS SUMMARY | 2024-03-30 10:24 | XMS_ITS | Encounter Summary ---
Author Organization [facility] Address [address] [place] [address] Care Team Providers Care Systems Mgr Name Role Phone Primo Hightower MD Primary Care Provider [phone] Encounter Details Date Type Department Care Team (Late st Contact Info) Description 06/24/2023 External Device Data STL ABSTRACTION Provider, Abstract [...] st Contact Info) Description 05/12/2024 11:30 AM DISASTER RECOVERY SPECIALIST Office Visit [facility] Oncology and Hematology - [place] [address] [place] [address] [address] [place] [address] Cristino Cason MD [address] [facility] [address] [place] [address] documented as of this encounter Visit Diagnoses Not on filedocumented in this encounter Care Teams Systems Mgr Relationship Specialty Start Date End Date Primo Hightower MD [address] [facility] 120 [place] [address] PCP - General Family Practice 01/27/23 documented as of this encounter
--- OUTSIDE RECORDS SUMMARY | 2024-03-30 10:24 | XMS_ITS | Encounter Summary ---
Author Organization [facility] Address [address] [place] [address] Care Team Providers Care School Library Media Program Director Name Role Phone Primo Hightower MD Primary Care Provider [phone] Encounter Details Date Type Department Care Team (Late st Contact Info) Description 05/19/2023 External Device Data STL ABSTRACTION Provider, Abstract [...] Contact Info) Description 05/12/2024 11:30 AM PLATFORM WORKER Office Visit [facility] Oncology and Hematology - [place] [address] [place] [address] [address] [place] [address] Cristino Cason MD [address] [facility] [address] [place] [address] documented as of this encounter Visit Diagnoses Not on filedocumented in this encounter Care Teams School Library Media Program Director Relationship Specialty Start Date End Date Primo Hightower MD [address] [facility] 120 [place] [address] PCP - General Family Practice 01/27/23 documented as of this encounter
--- OUTSIDE RECORDS SUMMARY | 2024-03-30 10:24 | XMS_ITS | Encounter Summary ---
Author Organization [facility] Address [address] [place] [address] Care Team Providers Care Client Success Manager Name Role Phone Primo Hightower MD Primary Care Provider [phone] Encounter Details Date Type Department Care Team (Late st Contact Info) Description 09/02/2023 External Device Data STL ABSTRACTION Provider, Abstract [...] st Contact Info) Description 05/12/2024 11:30 AM AIRPLANE DESIGNER Office Visit [facility] Oncology and Hematology - [place] [address] [place] [address] [address] [place] [address] Cristino Cason MD [address] [facility] [address] [place] [address] documented as of this encounter Visit Diagnoses Not on filedocumented in this encounter Care Teams Client Success Manager Relationship Specialty Start Date End Date Primo Hightower MD [address] [facility] 120 [place] [address] PCP - General Family Practice 01/27/23 documented as of this encounter
--- OUTSIDE RECORDS SUMMARY | 2024-03-30 10:24 | XMS_ITS | Encounter Summary ---
Author Organization [facility] [employer] [facility] Address [address] [place] [address] Care Team Providers Care Binder Sorter Name Role Phone Primo Hightower MD Primary Care Provider Reason for Visit * Reason Comments Follow Up Encounter Details Date Type Department Care Team (Late st Contact Info) Description 04/25/2023 12:45 PM REPAIRER EVAPORATOR Office Visit [facility] Oncology and Hematology - [place] [address] [facility] [address] [place] [address] Cristino Cason MD [address] [facility] [address] [place] [address] Chronic anemia (Primary Dx) Social History Tobacco Use Types Packs/Day Years Used Date Smoking Tobacco: Former Cigarettes Smokeless Tobacco: Never Tobacco Cessation:Counseling Given: Not Answered Alcohol Use Standard Drinks/Week Comments Yes 0 (1 standard drink = 0.6 oz pur e alcohol) Sex and Gender Information Value Date Recorded Sex Assigned at Not on file Gender Identity Not on file Sexual Orientation Not on file documented as of this encounter Last Filed Vital Signs Vital Sign Reading Time Taken Comments Blood Pressure 108/82 04/25/2023 12:18 PM REPAIRER EVAPORATOR Pulse 72 04/25/2023 12:18 PM REPAIRER EVAPORATOR Temperature 36.6 ??C (97.8 ??F) 04/25/2023 12:[address] Respiratory Rate 10 04/25/2023 12:18 PM REPAIRER EVAPORATOR Oxygen Saturation 98% 04/25/2023 12:18 PM REPAIRER EVAPORATOR Inhaled Oxygen Concentration - - Weight 79.8 kg (176 lb) 04/25/2023 12:18 PM REPAIRER EVAPORATOR Height - - Body Mass Index 26.76 01/27/2023 2:46 PM CDT documented in this encounter Progress Notes * Cristino Cason MD - 04/25/2023 2:49 PM CST HEMATOLOGY / ONCOLOGY PROGRESS NOTE Patient Identification: Name: Monty Rodarte Age: 63 y.o. 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 He denies any night sweats fevers and chills. No bleeding and bruising. Weight and appetite stable. Overall he is feeling better. No other new complaints. Review of system Constitutional: Patient did not mention fevers, sweats, denies any tiredness and fatigue HEENT: Patient did not mention sinus congestion, hearing or vision problems Respiratory: Patient did not mention cough, dyspnea, wheeze Cardiovascular: Patient did not mention chest pain, exertional chest pressure/discomfort, nausea, syncope, shortness of breath GI: Patient did not mention constipation, diarrhea, dsyphagia, reflux symptoms, vomiting, melena : Patient did not mention dysuria, frequency, incontinence, urgency Integumentary system: no lymphadenopathy, sweats, flushing Musculoskeletal: Patient not mention: myalgia, complain of generalized arthralgia Neurological: Patient did not mention blurry or disturbed vision, numbness/weakness, dizziness Skin: No lumps, bumps or rashes. 12 point review of system was reviewed Objective: Vital signs in last 24 hours: As per nursing note Exam: General appearance: alert, cooperative, no distress, appears stated age Head: normocephalic, without obvious abnormality, atraumatic Eyes: conjunctivae/corneas clear, EOM's intact Ears: normal external ear canals AU Nose: Nares normal. Septum midline. Mucosa normal. No drainage or sinus tenderness Throat: Lips, mucosa, and tongue normal. Teeth and gums normal Neck: supple, symmetrical, trachea midline. Lungs: clear to auscultation bilaterally Heart: regular rate and rhythm, S1, S2 normal, no murmur, click, rub or gallop Abdomen: soft, non-tender. Bowel sounds normal. No masses, No organomegaly Extremities: extremities normal, atraumatic, no cyanosis or edema Skin: Skin color, texture, turgor normal. No rashes or lesions Lymph nodes: No lymphadenopathy Neuro: No obvious focal deficit Exam as above PATH LABS Labs from January 27, 2023 showed DILEEP positive creatinine 0.8 B12 299 WBC 3.7 hemoglobin 12.6 platelet 284,000 neutrophil 53% lymphocyte 24% iron 37 saturation 9% ferritin 5.5 Labs from April 25 showed ferritin 30 B12 617 hemoglobin 14.4 WBC 4.7 platelet 276,000 iron saturation 30 iron 118 Assessment: Plan: There are no problems to display for this patient. Autoimmune leukopenia. DILEEP came back positive. Spleen ultrasound is normal. Repeat labs showed normal WBC count. 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 Patient started taking oral iron once a day with vitamin C daily along with vitamin B12 1 mg daily. Labs showed significant improvement in iron and B12 level. Will continue the current dose and follow-up with me in 6 months. Generalized arthralgia with DILEEP positive. I have referred him for rheumatology consultation but patient has not seen them. TOBACCO COUNSELING He is not a tobacco/nicotine user. 04/25/2023 Cristino Cason MD IRER EVAPORATOR documented in this encounter Plan of Treatment Upcoming Encounters Date Type Department Care Team (Late st Contact Info) Description 05/12/2024 11:30 AM REPAIRER EVAPORATOR Office Visit [facility] Oncology and Hematology - [place] [address] [facility] [address] [place] [address] Cristino Cason MD [address] [facility] [address] [place] [address] Scheduled Orders Name Type Priority Associated Diagnoses Orde r Schedule CBC WITH DIFFERENTIAL Lab Stat Chronic anemia Expected: 10/24/2023, Expires: 04/25/2024 documented as of this encounter Procedures Procedure Name Priority Date/Time Associated Diagnosis Comments VITAMIN B12 AND FOLATE Routine 10/24/2023 8:47 AM CDT Chronic anemia IRON, TIBC, AND PERCENT SATURATION Routine 10/24/2023 8:47 AM CDT Chronic anemia CBC WITH DIFFERENTIAL Routine 10/24/2023 8:47 AM CDT FERRITIN Routine 10/24/2023 8:47 AM CDT Chronic anemia documented in this encounter Results * (ABNORMAL) CBC WITH DIFFERENTIAL (10/24/2023 8:47 AM CDT) WBC 3.3(L) 3.8 - 10.8 Thousand/ uL [facility] RBC 4.82 4.20 - 5.80 Million/u L [facility] HEMOGLOBIN 14.5 13.2 - 17.1 g/dL [facility] HEMATOCRIT 44.3 38.5 - 50.0 % [facility] MCV 91.9 80.0 - 100.0 fL [facility] MCH 30.1 27.0 - 33.0 pg [facility] MCHC 32.7 32.0 - 36.0 g/dL [facility] RDW 12.6 11.0 - 15.0 % [facility] PLATELETS 234 140 - 400 Thousand/ uL [facility] MPV 11.7 7.5 - 12.5 fL [facility] NEUTROPHIL ABSOLUTE 1,640 1,500 - 7,800 cells/uL [facility] LYMPHOCYTE ABSOLUTE 931 850 - 3,900 cells/uL [facility] MONOCYTE ABSOLUTE 488 200 - 950 cells/uL [facility] EOSINOPHIL ABSOLUTE 182 15 - 500 cells/uL [facility] BASOPHILS ABSOLUTE 59 0 - 200 cells/uL [facility] NEUTROPHIL 49.7 % [facility] LYMPHOCYTES 28.2 % [facility] MONOCYTE 14.8 % [facility] EOSINOPHILS 5.5 % [facility] BASOPHILS 1.8 % [facility] Comment: Test Performed at: [facility] [address] [place] ??[phone] Yahaira Saul 10/24/2023 8:47 AM CDT 10/24/2023 8:49 AM CDT Cristino Cason MD HEMATOLOGY ORDERABLE S Performing Organization Address [facility]/ZIP [facility] Phone Number [facility] [phone] [place] [address] [place] [phone] * VITAMIN B12 AND FOLATE (10/24/2023 8:47 AM CDT) [facility] VITAMIN B12 941 200 - 1100 pg/mL [facility] FOLATE, SERUM 14.4 ng/mL [facility] Comment: ? Reference Range ? Low: ? <3.4 ? Borderline: ?3.4-5.4 ? Normal: ?>5.4 Test Performed at: [facility] ??[phone] Yahaira Saul MD Blood 10/24/2023 8:47 AM CDT 10/24/2023 8:49 AM CDT Cristino Cason MD CHEMISTRY ORDERABLES Performing Organization Address City/State/ZIP Co fl Phone Number [facility] [phone] [facility] [address] [place] [phone] * IRON, TIBC, AND PERCENT SATURATION (10/24/2023 8:47 AM CDT) Pathologist [facility] IRON 108 50 - 180 mcg/dL [facility] TIBC 308 250 - 425 mcg/dL (calc) [facility] IRON % SATURATION 35 20 - 48 % (calc) [facility] Comment: Test Performed at: [facility] [place], [place] ??[address] Yahaira Saul MD Blood 10/24/2023 8:47 AM CDT 10/24/2023 8:49 AM CDT Cristino Cason MD CHEMISTRY ORDERABLES [facility] [phone] [facility] [employer] [address] * FERRITIN (10/24/2023 8:47 AM CDT) FERRITIN 87 24 - 380 ng/mL [facility] Comment: Test Performed at: [facility] ??[phone] Yahaira Saul MD Blood 10/24/2023 8:47 AM CDT 10/24/2023 8:49 AM CDT Cristino Cason MD CHEMISTRY ORDERABLES [facility] [phone] [facility] [employer] [address] documented in this encounter Visit Diagnoses Diagnosis Chronic anemia- Primary Anemia, unspecified documented in this encounter Care Teams Binder Sorter Relationship Specialty Start Date End Date Primo Hightower MD [address] [phone] PCP - General Family Practice 01/27/23 documented as of this encounter
--- OUTSIDE RECORDS SUMMARY | 2024-03-30 10:24 | XMS_ITS | Encounter Summary ---
Author Organization [facility] [employer] [facility] Address [address] [place] [address] Care Team Providers Care Reel Film Inspector Name Role Phone Primo Hightower MD Primary Care Provider [phone] Reason for Visit * Reason Comments Follow Up Encounter Details Date Type Department Care Team (Late st Contact Info) Description 11/07/2023 12:45 PM CDT Office Visit [facility] Oncology and Hematology - [place] 2[address] [facility] [address] [place] [address] Cristino Cason MD [address] [facility] [address] [place] [address] Chronic anemia (Primary Dx) Social [...] Sign Reading Time Taken Comments Blood Pressure 113/81 11/07/2023 12:40 PM CDT Pulse 69 11/07/2023 12:40 PM CDT Temperature 36.8 ??C (98.2 ??F) 11/07/2023 12:40 PM C DT Respiratory Rate 16 11/07/2023 12:40 PM CDT Oxygen Saturation 96% 11/07/2023 12:40 PM CDT Inhaled Oxygen Concentration - - Weight 82.1 kg (181 lb) 11/07/2023 12:40 PM CDT Height - - Body Mass Index 27.52 01/27/2023 2:46 PM CDT documented in this encounter Progress Notes * Cristino Cason MD - 11/07/2023 1:12 PM CDT HEMATOLOGY / ONCOLOGY PROGRESS NOTE Patient Identification: Name: Monty Rodarte Age: 63 y.o. 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 He denies any night sweats fevers and chills. Denies any infection. Weight and appetite stable. No bleeding and bruising. No other new complaints. Review of system Constitutional: Patient did not mention fevers, sweats, weight and appetite stable, denies any tiredness and fatigue HEENT: Patient [...] platelet 276,000 iron saturation 30 iron 118 Labs on October 23 showed WBC 3.3 hemoglobin 14.5 platelet 234,000 ANC 1640 ferritin 87 iron 108 saturation 35% B12 941 Assessment: Plan: There are no problems to display for this patient. Autoimmune leukopenia. DILEEP came back positive. Spleen ultrasound is normal. Clinically he is asymptomatic. Labs showed slight decline in the WBC count but ANC remains adequate. Will continue to observe and see him back in 6 months. 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 Iron and vitamin B12 levels normal. He will continue oral iron once a day with vitamin C and vitamin B12 1 mg daily. Generalized arthralgia with DILEEP positive. He is stable. TOBACCO COUNSELING He is not a tobacco/nicotine user. 11/07/2023 Cristino Cason MD documented in this encounter Plan of Treatment Upcoming Encounters Date Type Department Care Team (Late st Contact Info) Description 05/12/2024 11:30 AM HELPER ANIMAL LABORATORY Office Visit [facility] Oncology and Hematology - [place] 2[address] [facility] [address] [place] [address] Cristino Cason MD [address] [facility] [address] [place] [address] Scheduled Orders Name Type Priority Associated Diagnoses Orde r Schedule CBC WITH DIFFERENTIAL Lab Stat Chronic anemia Expected: 05/09/2024, Expires: 11/06/2024 BASIC METABOLIC PANEL Lab Stat Chronic anemia Expected: 05/09/2024, Expires: 11/06/2024 FERRITIN Lab Routine Chronic anemia Expected: 05/09/2024, Expires: 11/06/2024 IRON, TIBC, AND PERCENT SATURATION Lab Routine Chronic anemia Expected: 05/09/2024, Expires: 11/06/2024 VITAMIN B12 AND FOLATE Lab Routine Chronic anemia Expected: 05/09/2024, Expires: 11/06/2024 documented as of this encounter Visit Diagnoses Diagnosis Chronic anemia- Primary Anemia, unspecified documented in this encounter Care Teams Reel Film Inspector Relationship Specialty Start Date End Date Primo Hightower MD 68[address] [facility] [address] [facility] [address] [place] [phone] PCP - General Family Practice 01/27/23 documented as of this encounter
--- OUTSIDE RECORDS SUMMARY | 2024-03-30 10:24 | XMS_ITS | Encounter Summary ---
Author Organization [facility] Address [address] [place] [address] Care Team Providers Care Fishing Tackle Repairer Name Role Phone Primo Hightower MD Primary Care Provider [phone] Encounter Details Date Type Department Care Team (Late st Contact Info) Description 07/16/2023 External Device Data STL ABSTRACTION Provider, Abstract [...] st Contact Info) Description 05/12/2024 11:30 AM CRAFT CENTER DIRECTOR Office Visit [facility] Oncology and Hematology - [place] [address] [place] [address] [address] [place] [address] Cristino Cason MD [address] [facility] [address] [place] [address] documented as of this encounter Visit Diagnoses Not on filedocumented in this encounter Care Teams Fishing Tackle Repairer Relationship Specialty Start Date End Date Primo Hightower MD [address] [facility] [address] [place] [address] PCP - General Family Practice 01/27/23 documented as of this encounter
--- OUTSIDE RECORDS SUMMARY | 2024-03-30 10:24 | XMS_ITS | Encounter Summary ---
Author Organization [facility] Address [address] [place] [address] Care Team Providers Care Acidity Tester Name Role Phone Primo Hightower MD Primary Care Provider [phone] Encounter Details Date Type Department Care Team [...] st Contact Info) Description 05/12/2024 11:30 AM REPORTING MANAGER Office Visit [facility] Oncology and Hematology - [place] [address] [place] [address] [address] [place] [address] Cristino Cason MD [address] [facility] [address] [place] [address] documented as of this encounter Visit Diagnoses Not on filedocumented in this encounter Care Teams Acidity Tester Relationship Specialty Start Date End Date Primo Hightower MD [address] [facility] [address] [place] [address] PCP - General Family Practice 01/27/23 documented as of this encounter
--- OUTSIDE RECORDS SUMMARY | 2024-03-30 10:24 | XMS_ITS | Encounter Summary ---
Author Organization [facility] [employer] [facility] Address [address] [place] [address] Care Team Providers Care Sourcing Associate Name Role Phone Primo Hightower MD Primary Care Provider [phone] Encounter Details Date Type Department Care Team ([facility] Contact Info) Description 10/20/2023 Orders Only [facility] Oncology and Hematology [facility] [address] [place] [address] Cristino Cason MD [address] [place] [address] [employer] [address] [place] [address] Chronic anemia (Primary Dx) Social History [...] Encounters Date Type Department Care Team (Late Contact Info) Description 05/12/2024 11:30 AM SHORTS SIFTER Office Visit [facility] Oncology and Hematology - [place] [address] [place] [address] Cristino Cason MD [address] [place] [address] [employer] [address] [place] [address] Scheduled Orders Name Type Priority Associated Diagnoses Orde r Schedule BASIC METABOLIC PANEL Lab Routine Chronic anemia Expected: 10/20/2023, Expires: 10/19/2024 documented as of this encounter Visit Diagnoses Diagnosis Chronic anemia- Primary Anemia, unspecified documented in this encounter Care Teams Sourcing Associate Relationship Specialty Start Date End Date Primo Hightower MD [address] [facility] 120 [place] [phone] PCP - General Family Practice 01/27/23 documented as of this encounter
--- OUTSIDE RECORDS SUMMARY | 2024-03-30 10:24 | XMS_ITS | Clinical Summary ---
Author Organization [facility] Address [address] [facility] [place] [address] Care Team Providers Care Esl Instructor Name Role Phone Primo Hightower MD Primary Care Provider [phone] Allergies No known active allergies Medications Medication Sig Dispensed Refills Start Date End Date Status atorvastatin (LIPITOR) 20 mg tablet Take 20 mg by mouth daily. Active omeprazole (PriLOSEC) 40 mg Capsule, Delayed Release(E.C.) Take 40 mg by mouth daily. Active acetaminophen (TYLENOL) 500 mg tablet Take 500 mg by mouth every 6 hours as needed. Active aspirin (ECOTRIN EC) 81 mg Tablet, Delayed Release (E.C.) Take 81 mg by mouth daily. Active cetirizine (ZyrTEC) 10 mg tablet Take 10 mg by mouth daily. Active Active Problems No known active problems Encounters Date Type Department Care Team Description 02/02/2024 External Device Data STL ABSTRACTION Provider, Abstract from Last 3 Months Family History Relation Name Status Comments Father Mother Social History Tobacco Use Types Packs/Day Years Used Date Smoking Tobacco: Former Cigarettes Smokeless Tobacco: Never Tobacco Cessation:Counseling Given: Not Answered Alcohol Use Standard Drinks/Week Comments Yes 0 (1 standard drink = 0.6 oz pur e alcohol) Sex and Gender Information Value Date Recorded Sex Assigned at Not on file Gender Identity Not on file Sexual Orientation Not on file Last Filed Vital Signs Vital Sign Reading Time Taken Comments Blood Pressure 113/81 11/07/2023 12:40 PM CDT Pulse 69 11/07/2023 12:40 PM CDT Temperature 36.8 ??C (98.2 ??F) 11/07/2023 12:40 PM C DT Respiratory Rate 16 11/07/2023 12:40 PM CDT Oxygen Saturation 96% 11/07/2023 12:40 PM CDT Inhaled Oxygen Concentration - - Weight 82.1 kg (181 lb) 11/07/2023 12:40 PM CDT Height 172.7 cm (5' 8 ) 01/27/2023 2:46 PM CDT Body Mass Index 27.52 01/27/2023 2:46 PM CDT Plan of Treatment Upcoming Encounters Date Type Department Care Team (Late st Contact Info) Description 05/12/2024 11:30 AM METAL CHECKER Office Visit [facility] Oncology and Hematology [facility] [address] [facility] [address] [place] [address] Cristino Cason MD [address] [facility] [address] [place] [address] Health Maintenance Due Date Last Done Comments Pre-Diabetes and Diabetes Screening 1960 DTAP/TDAP/TD VACCINES (1 - Tdap) 1978 COLORECTAL SCREENING 02/23/2004 Colorectal Cancer Screening 02/23/2004 FIT-DNA Q 3 years 02/23/2004 FIT/FOBT Q 1 year 02/23/2004 Flex Sig/CT Colonography Q 5 years 02/23/2004 ZOSTER VACCINE (1 of 2) 2009 INFLUENZA VACCINE (#1) 2023 PNEUMOCOCCAL VACCINE 65+ YEARS (1 of 1 - PCV) 02/23/20 RSV VACCINE (60+ or ) (1 - 1-dose 75+ series) 2034 Abdominal Aortic Aneurysm (AAA) Screening Completed 01/30/2023 Procedures Procedure Name Priority Date/Time Associated Diagnosis Comments US ABDOMEN COMPLETE Routine 01/30/2023 11:44 AM CDT from Last 3 Months or Most Recently Relevant to Health Maintenance Results * US ABDOMEN COMPLETE (01/30/2023 11:44 AM CDT) Anatomical Region Laterality Modality Abdomen Other Cristino Cason MD US ORDERABLES from Last 3 Months or Most Recently Relevant to Health Maintenance Care Teams Esl Instructor Relationship Specialty Start Date End Date Primo Hightower MD [address] [facility] [address] [place] [address] PCP - General Family Practice 01/27/23
--- OUTSIDE RECORDS SUMMARY | 2024-03-30 10:25 | XMS_ITS | Encounter Summary ---
Author Organization [facility] [email or web address] [facility] Address [address] [place] [address] Care Team Providers Care Carpet Layer Name Role Phone Primo Hightower MD Primary Care Provider [phone] Encounter Details Date Type Department Care Team ([facility] Contact Info) Description 02/03/2023 Orders Only [facility] Oncology and Hematology [facility] [address] [place] [address] Cristino Cason MD [address] [place], [place] [address] [address] [place] [address] Social History Tobacco Use Types Packs/Day Years [...] (Late Contact Info) Description 05/12/2024 11:30 AM BEEF TRIMMER Office Visit [facility] Oncology and Hematology - [place] [address] [place] [address] Cristino Cason MD [facility] [address] [place] [address] documented as of this encounter Procedures Procedure Name Priority Date/Time Associated Diagnosis Comments DILEEP PANEL Routine 01/27/2023 9:35 AM CDT documented in this encounter Results * DILEEP PANEL (01/27/2023 9:35 AM CDT) Blood Cristino Cason MD CHEMISTRY ORDERABLES documented in this encounter Visit Diagnoses Not on filedocumented in this encounter Care Teams Carpet Layer Relationship Specialty Start Date End Date Primo Hightower MD [address] [facility] [address] [place] [address] PCP - General Family Practice 01/27/23 documented as of this encounter
--- OUTSIDE RECORDS SUMMARY | 2024-03-30 10:25 | XMS_ITS | Encounter Summary ---
Author Organization [facility] [employer] [facility] Address [address] [place] [address] Care Team Providers Care Microfilm Equipment Inspector Name Role Phone Primo Hightower MD Primary Care Provider [phone] Encounter Details Date Type Department Care Team (Late Contact Info) Description 01/30/2023 Orders Only [facility] Oncology and Hematology [facility] [address] [place] [address] Cristino Cason MD [facility] Checkr [address] [place] [address] Social History Tobacco Use Types Packs/Day [...] (Late Contact Info) Description 05/12/2024 11:30 AM PYTHON ENGINEER Office Visit [facility] Oncology and Hematology [place] [address] [place] [address] Cristino Cason MD [facility] [address] [place] [address] documented as of this encounter Procedures Procedure Name Priority Date/Time Associated Diagnosis Comments PATHOLOGY Routine 01/27/2023 9:31 AM CDT documented in this encounter Results * PATHOLOGY (01/27/2023 9:31 AM CDT) Tissue Cristino Cason MD PATHOLOGY/CYTOLOGY O SCOUT documented in this encounter Visit Diagnoses Not on filedocumented in this encounter Care Teams Microfilm Equipment Inspector Relationship Specialty Start Date End Date Primo Hightower MD [address] [facility] [address] [place] [address] PCP - General Family Practice 01/27/23 documented as of this encounter
--- OUTSIDE RECORDS SUMMARY | 2024-03-30 10:25 | XMS_ITS | Encounter Summary ---
Author Organization [facility] [employer] [facility] Address [address] [place] [address] Care Team Providers Care Rubber Press Tender Name Role Phone Primo Hightower MD Primary Care Provider [phone] Encounter Details Date Type Department Care Team ([facility] Contact Info) Description 01/28/2023 Orders Only [facility] Oncology and Hematology [facility] [address] [place] [address] Cristino Cason MD [address] [place], [place] [address] [address] [place] [address] Social History Tobacco Use Types Packs/Day [...] (Late Contact Info) Description 05/12/2024 11:30 AM CHAIR UPHOLSTERER Office Visit [facility] Oncology and Hematology - [place] [address] [place] [address] Cristino Cason MD [facility] [address] [place] [address] documented as of this encounter Procedures Procedure Name Priority Date/Time Associated Diagnosis Comments COMPREHENSIVE METABOLIC PANEL Routine 01/27/2023 2:01 PM CDT CBC WITH DIFFERENTIAL Routine 01/27/2023 12:52 PM CDT documented in this encounter Results * COMPREHENSIVE METABOLIC PANEL (01/27/2023 2:01 PM CDT) Blood Cristino Cason MD CHEMISTRY ORDERABLES * CBC WITH DIFFERENTIAL (01/27/2023 12:52 PM CDT) Blood Cristino Cason MD HEMATOLOGY ORDERABLE S documented in this encounter Visit Diagnoses Not on filedocumented in this encounter Care Teams Rubber Press Tender Relationship Specialty Start Date End Date Primo Hightower MD [address] [facility] 120 [place] [address] PCP - General Family Practice 01/27/23 documented as of this encounter
--- OUTSIDE RECORDS SUMMARY | 2024-03-30 10:25 | XMS_ITS | Encounter Summary ---
Author Organization [facility] [employer] [facility] Address [address] [place] [address] Care Team Providers Care Product Marketing Intern Name Role Phone Primo Hightower MD Primary Care Provider [phone] Reason for Referral * Eval and Treat (Routine) - Closed Specialty Diagnoses / Procedures Referred By Contac t Referred To Contact Rheumatology Diagnoses Osteoarthritis, unspecified osteoarthritis type, unspecified site Procedures PA OFFICE/OUTPATIENT ESTABLISHED MOD MDM 30-39 MIN PA OFFICE/OUTPATIENT NEW MODERATE MDM 45-59 MINUTES Cristino Cason MD [address] [place] [phone] Referral ID Status Reason Start Date Expiration Date V isits Requested Visits Authorized [id number] Closed CRS To Schedule (STL) 02/13/2023 02/13/2024 1 1 PLANT OPERATOR Reason for Visit * Reason Comments Follow Up Encounter Details Date Type Department Care Team (Late st Contact Info) Description 02/13/2023 1:15 PM FLUX PLANT OPERATOR Office Visit [facility] Oncology and Hematology - [place] [facility] [address] [place] [address] Cristino Cason MD [address] [place] [address] Osteoarthritis, unspecified osteoarthritis type, unspecified site (Primary Dx); Chronic anemia Social History Tobacco Use Types Packs/Day Years [...] Sign Reading Time Taken Comments Blood Pressure 122/82 02/13/2023 1:16 PM FLUX PLANT OPERATOR Pulse 62 02/13/2023 1:16 PM FLUX PLANT OPERATOR Temperature 36.3 ??C (97.4 ??F) 02/13/2023 1:16 PM CS T Respiratory Rate 10 02/13/2023 1:16 PM FLUX PLANT OPERATOR Oxygen Saturation 100% 02/13/2023 1:16 PM FLUX PLANT OPERATOR Inhaled Oxygen Concentration - - Weight 81.6 kg (180 lb) 02/13/2023 1:16 PM FLUX PLANT OPERATOR Height - - Body Mass Index 27.37 01/27/2023 2:46 PM CDT documented in this encounter Progress Notes * Cristino Cason MD - 02/13/2023 1:39 PM CST HEMATOLOGY / ONCOLOGY PROGRESS NOTE Patient Identification: Name: Monty Rodarte Age: 62 y.o. 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 She is complaining of generalized musculoskeletal discomfort. No bleeding and bruising. Denies any chest pain or shortness of breath. He has mild tiredness and fatigue. No other new complaints. Review of system Constitutional: Patient did not mention fevers, sweats, complain of mild tiredness and fatigue HEENT: Patient did not [...] dizziness Skin: No lumps, bumps or rashes. Objective: Vital signs in last 24 hours: [...] No lymphadenopathy Neuro: No obvious focal deficit PATH LABS Labs from January 27, 2023 showed DILEEP positive creatinine 0.8 B12 299 WBC 3.7 hemoglobin 12.6 platelet 284,000 neutrophil 53% lymphocyte 24% iron 37 saturation 9% ferritin 5.5 @IMAGEIMP@ Assessment: Plan: There are no problems to display for this patient. Autoimmune leukopenia. DILEEP came back positive. Spleen ultrasound is normal. He is complaining of generalized arthralgia. We will refer to rheumatology. 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 Patient used to donate blood but the last timewas 2 years ago. Last colonoscopy was 3 years ago and was reportedly normal. We will start iron 325mg twice daily with vitamin C 500 mg daily. We will also start vitamin B12 1 mg daily. We will repeat labs in 2 months. Generalized arthralgia with positive DILEEP. We will refer him for rheumatology consultation. Follow-up in 2 months ? TOBACCO COUNSELING He is not a tobacco/nicotine user. 02/13/2023 Cristino Cason MD PLANT OPERATOR documented in this encounter Plan of Treatment Upcoming Encounters Date Type Department Care Team (Late st Contact Info) Description 05/12/2024 11:30 AM FLUX PLANT OPERATOR Office Visit [facility] Oncology and Hematology - [place] [address] [place] [phone] Cristino Cason MD [address] [facility] [address] [place] [address] Scheduled Referrals Name Type Priority Associated Diagnoses Orde r Schedule AMB REFERRAL TO RHEUMATOLOGY Outpatient Referral Routine Osteoarthritis, unspecified osteoarthritis type, unspecified site Ordered: 02/13/2023 documented as of this encounter Procedures Procedure Name Priority Date/Time Associated Diagnosis Comments VITAMIN B12 AND FOLATE Routine 04/24/2023 1:01 PM FLUX PLANT OPERATOR Chronic anemia IRON, TIBC, AND PERCENT SATURATION Routine 04/24/2023 1:01 PM FLUX PLANT OPERATOR Chronic anemia CBC WITH DIFFERENTIAL Routine 04/24/2023 1:01 PM FLUX PLANT OPERATOR FERRITIN Routine 04/24/2023 1:01 PM FLUX PLANT OPERATOR Chronic anemia BASIC METABOLIC PANEL Routine 04/24/2023 1:01 PM FLUX PLANT OPERATOR documented in this encounter Results * BASIC METABOLIC PANEL (04/24/2023 1:01 PM FLUX PLANT OPERATOR) GLUCOSE 78 65 - 99 mg/dL [facility] Comment: ? Fasting reference interval BUN 15 7 - 25 mg/dL [facility] CREATININE 0.86 0.70 - 1.35 mg/dL [facility] GFR 97 > OR = 60 mL/min/1. 73m2 [facility] BUN/CREAT RATIO SEE NOTE: 6 (calc) [facility] Comment: ?? Not Reported: BUN and Creatinine are within ?? reference range. ? SODIUM 139 135 - 146 mmol/L [facility] POTASSIUM 4.3 3.5 - 5.3 mmol/L [facility] CHLORIDE 104 98 - 110 mmol/L [facility] CO2 26 20 - 32 mmol/L [facility] CALCIUM 9.8 8.6 - 10.3 mg/dL [facility] Comment: Test Performed at: [facility] [address] [place] ??[phone] [facility] 04/24/2023 1:01 PM FLUX PLANT OPERATOR 04/24/2023 1:02 PM FLUX PLANT OPERATOR Cristino Cason MD CHEMISTRY ORDERABLES [facility] [phone] [facility] [address] [place] [address] * CBC WITH DIFFERENTIAL (04/24/2023 1:01 PM FLUX PLANT OPERATOR) WBC 4.7 3.8 - 10.8 Thousand/u L [facility] RBC 4.98 4.20 - 5.80 Million/uL [facility] HEMOGLOBIN 14.4 13.2 - 17.1 g/dL [facility] HEMATOCRIT 44.2 38.5 - 50.0 % [facility] MCV 88.8 80.0 - 100.0 fL [facility] MCH 28.9 27.0 - 33.0 pg [facility] MCHC 32.6 32.0 - 36.0 g/dL [facility] RDW 14.2 11.0 - 15.0 % [facility] PLATELETS 276 140 - 400 Thousand/u L [facility] MPV 11.6 7.5 - 12.5 fL [facility] NEUTROPHIL ABSOLUTE 3,182 1,500 - 7,800 cells/uL [facility] LYMPHOCYTE ABSOLUTE 860 850 - 3,900 cells/uL [facility] MONOCYTE ABSOLUTE 470 200 - 950 cells/uL [facility] EOSINOPHIL ABSOLUTE 108 15 - 500 cells/uL [facility] BASOPHILS ABSOLUTE 80 0 - 200 cells/uL [facility] NEUTROPHIL 67.7 % [facility] LYMPHOCYTES 18.3 % [facility] MONOCYTE 10.0 % [facility] EOSINOPHILS 2.3 % [facility] BASOPHILS 1.7 % [facility] Comment: Test Performed at: [facility] [address] [place] ??[phone] [facility] 04/24/2023 1:01 PM FLUX PLANT OPERATOR 04/24/2023 1:02 PM FLUX PLANT OPERATOR Cristino Cason MD HEMATOLOGY ORDERABLE S Performing Organization Address [facility] Phone Number [facility] [phone] [facility] [address] [place] [address] * VITAMIN B12 AND FOLATE (04/24/2023 1:01 PM FLUX PLANT OPERATOR) Pathologist [facility] VITAMIN B12 617 200 - 1100 pg/mL [facility] FOLATE, SERUM 16.7 ng/mL [facility] Comment: ? Reference Range ? Low: ? <3.4 ? Borderline: ?3.4-5.4 ? Normal: ?>5.4 Test Performed at: [facility] ??[address] Yahaira Saul MD Blood 04/24/2023 1:01 PM FLUX PLANT OPERATOR 04/24/2023 1:02 PM FLUX PLANT OPERATOR Cristino Cason MD CHEMISTRY ORDERABLES Performing Organization Address City/State/ZIP [place] Phone Number [facility] [phone] [address] * IRON, TIBC, AND PERCENT SATURATION (04/24/2023 1:01 PM FLUX PLANT OPERATOR) Pathologist [facility] IRON 118 50 - 180 mcg/dL [facility] TIBC 393 250 - 425 mcg/dL (calc) [facility] IRON % SATURATION 30 20 - 48 % (calc) [facility] Comment: Test Performed at: [facility] [address] [place], [place] ??[address] Yahaira Saul MD Blood 04/24/2023 1:01 PM FLUX PLANT OPERATOR 04/24/2023 1:02 PM FLUX PLANT OPERATOR Cristino Cason MD CHEMISTRY ORDERABLES [facility] [phone] [facility] [address] [place] [phone] * FERRITIN (04/24/2023 1:01 PM FLUX PLANT OPERATOR) FERRITIN 30 24 - 380 ng/mL [facility] Comment: Test Performed at: [facility] ??[phone] Yahaira Saul MD Blood 04/24/2023 1:01 PM FLUX PLANT OPERATOR 04/24/2023 1:02 PM FLUX PLANT OPERATOR Cristino Cason MD CHEMISTRY ORDERABLES Performing Organization Address City/[facility]/ZIP Co de Phone Number [facility] [phone] [facility] [email or web address] [address] documented in this encounter Visit Diagnoses Diagnosis Osteoarthritis, unspecified osteoarthritis type, unspecified site- Primary Chronic anemia Anemia, unspecified documented in this encounter Care Teams Product Marketing Intern Relationship Specialty Start Date End Date Primo Hightower MD [address] [address] PCP - General Family Practice 01/27/23 documented as of this encounter
--- OUTSIDE RECORDS SUMMARY | 2024-03-30 10:25 | XMS_ITS | Encounter Summary ---
Author Organization [facility] [employer] [facility] Address [address] [place] [address] Care Team Providers Care Merchandise Flow Associate Name Role Phone Primo Hightower MD Primary Care Provider Encounter Details Date Type Department Care Team ([facility] Contact Info) Description 02/03/2023 Abstract [facility] Oncology and Hematology [place] [address] [place] [address] Cristino Cason MD [address] [facility] [employer] [address] [place] [address] Social History Tobacco Use Types Packs/Day [...] Upcoming Encounters Date Type Department Care Team ([facility] Contact Info) Description 05/12/2024 11:30 AM SENIOR SOFTWARE MANAGER Office Visit [facility] Oncology and Hematology [place] [address] [place] [address] Cristino Cason MD [address] [facility] [employer] [address] [place] [address] documented as of this encounter Visit Diagnoses Not on filedocumented in this encounter Care Teams Merchandise Flow Associate Relationship Specialty Start Date End Date Primo Hightower MD [address] [facility] [address] [place] [phone] PCP - General Family Practice 01/27/23 documented as of this encounter
--- OUTSIDE RECORDS SUMMARY | 2024-03-30 10:25 | XMS_ITS | Encounter Summary ---
Author Organization [facility] [employer] [facility] Address [address] [place] [address] Care Team Providers Care Hand Spinner Name Role Phone Primo Hightower MD Primary Care Provider [phone] Reason for Visit * Reason Comments Establish Care Encounter Details Date Type Department Care Team (Late st Contact Info) Description 01/27/2023 3:00 PM CDT Office Visit [facility] Oncology and Hematology - [place] [address] [facility] [address] [place] [address] Cristino Cason MD [address] [facility] [address] [place] [address] Chronic anemia (Primary Dx); Leukopenia, unspecified type Social History Tobacco Use Types Packs/Day Years [...] Sign Reading Time Taken Comments Blood Pressure 114/72 01/27/2023 2:46 PM CDT Pulse 65 01/27/2023 2:46 PM CDT Temperature 36.6 ??C (97.8 ??F) 01/27/2023 2:46 PM CD T Respiratory Rate 10 01/27/2023 2:46 PM CDT Oxygen Saturation 99% 01/27/2023 2:46 PM CDT Inhaled Oxygen Concentration - - Weight 81.6 kg (180 lb) 01/27/2023 2:46 PM CDT Height 172.7 cm (5' 8 ) 01/27/2023 2:46 PM CDT Body Mass Index 27.37 01/27/2023 2:46 PM CDT documented in this encounter Progress Notes * Cristino Cason MD - 01/27/2023 5:15 PM CDT Hematology-oncology consult Note Requesting Physician Primo Hightower MD Primary Care Physician Primo Hightower MD Problem list There is no problem list on file for this patient. Previous TREATMENT ? Measurable Disease ? Reason for Visit Monty Rodarte is a 62 y.o. male who was referred for consultation for leukopenia. History of present illness This is a pleasant 62-year-old male with history of hyperlipidemia, gastroesophageal reflux disease and allergies. He has been dealing with leukopenia since August 2020. He denies any night sweats fevers and chills. Patient has history of H. pylori infection 2 years ago. He denies any fever chills and weight loss. He does have some intermittent night sweats. Denies any new lung sounds lymphadenopathy. No bleeding and bruising. There is no signs of infection. Labs from November 09 showed WBC 2.7 hemoglobin 13.2 platelet 275,000. He denies any rash and arthritis. No diarrhea and constipation. No other new complaints. He denies any history of liver disease. Past Medical History Past Medical History: Diagnosis Date Emphysema of lung Hyperlipidemia History of seasonal allergies Surgical History No past surgical history on file. Medications Current Outpatient Medications Medication Sig Dispense Refill atorvastatin (LIPITOR) 20 mg tablet Take 20 mg by mouth daily. omeprazole (PriLOSEC) 40 mg Capsule, Delayed Release(E.C.) Take 40 mg by mouth daily. acetaminophen (TYLENOL) 500 mg tablet Take 500 mg by mouth every 6 hours as needed. aspirin (ECOTRIN EC) 81 mg Tablet, Delayed Release (E.C.) Take 81 mg by mouth daily. cetirizine (ZyrTEC) 10 mg tablet Take 10 mg by mouth daily. No current facility-administered medications for this visit. Allergies No Known Allergies Immunizations: There is no immunization history on file for this patient. Family History No family history on file. Social History Social History Tobacco Use Smoking status: Former Types: Cigarettes Smokeless tobacco: Never Substance Use Topics Alcohol use: Yes Review of Systems Constitutional: Patient did not mention fever; intermittent night sweats; no anorexia; no weight loss; no fatique NEENT: Patient did not mention headache; no change in vision; no change in hearing; no sore throat;no dysphagia Respiratory: Patient did not mention shortness of breath; no pleuritic chest pain; no cough; no hemoptysis GI: Patient did not mention abdominal pain; no nausea; no vomiting; no diarrhea; no hematochezia; no melena : Patient did not mention dysuria; no frequency; no hesitancy; no hematuria DIRECTOR OF SPA AND GUEST EXPERIENCE: Musculosketetal: Patient did not mention bone pain; no arthralgia; no joint swelling; no myalgia; Skin: Patient did not mention pruritis; no rash; no petechiae; no ecchymoses Endocrine: Patient did not mention polydipsia; no polyuria; no unusual weight gain Neuro: Patient did not mention headache; no change in vision; no sensory changes; no muscle weakness; no confusion; no seizures Psych: Patient did not mention anxiety; no depression; Physical Exam Vitals: As per nursing note Constitutional: Well developed, well nourished, no acute distress, non-toxic appearance Teeth and gum. No signs of infection or swelling. Eyes: PERRL, conjunctiva normal HEENT: Atraumatic, external ears normal, nose normal, oropharynx moist, no pharyngeal exudates. no sinus tenderness Neck- normal range of motion, no tenderness, supple Respiratory: No respiratory distress, normal breath sounds, no rales, no wheezing Cardiovascular: Normal rate, normal rhythm, no murmurs, no gallops, no rubs GI: Soft, nondistended, normal bowel sounds, nontender, no splenomegaly, no hepatomegaly, no mass, no rebound, no guarding : No costovertebral angle tenderness Musculoskeletal: No edema, no tenderness, no deformities. Back- no tenderness Integument: Well hydrated, no rash, Digits and nails inspection normal Lymphatic: No lymphadenopathy noted Neurologic: Alert & oriented x 3, CN 2-12 normal, normal motor function, normal sensory function, no focal deficits noted Psychiatric: Speech and behavior appropriate ? labs No results found for this or any previous visit (from the past 24 hour(s)). Labs from November 09, 2022 showed WBC 2.7 hemoglobin 13.2 platelet 275,000 neutrophils 41% lymphocyte 34% Pathology ? Imaging & Other Studies Performance Status? Assessment / Plan: ? Leukopenia. Patient is a pleasant 62-year-old male with history of hyperlipidemia GERD and seasonal allergies. He has a history of H. pylori infection x2 2 years ago. He denies any fevers and chills. Denies any weight loss. He does have intermittent night sweats. On my examination there is no evidence of lymphadenopathy and hepatosplenomegaly. I have discussed the differential diagnosisof leukopenia with the patient that includes bone marrow disorders, lymphoproliferative disorders, nutritional deficiencies, autoimmune disorders, infections, liver and spleen disorders and benign essential leukopenia. I will order the work-up that will include CBC with differential, CMP, peripheral smear review by pathologist, iron studies, B12 and folic acid level and abdominal ultrasound. We will check DILEEP as well. No need for bone marrow biopsy testing at this time. I have answered all the questions to patient satisfaction. Follow-up with me in 2 weeks. Hyperlipidemia. He is on Lipitor. Seasonal allergies. Patient is on Zyrtec. Thank you very much for allowing me to participate in Monty Rodarte's evaluation and management. Please feel free to contact if I can be of any further assistance in your patient???s care requiring hematology or oncology evaluation. Sincerely, ? ? Cristino Cason M.D. cell TOBACCO COUNSELING He is not a tobacco/nicotine user. Cristino Cason MD ,01/27/2023 5:15 PM ? Total time spent 60 minutes, two third of the total time spent counseling patient [id number]. CC:?Primo Hightower MD documented in this encounter Plan of Treatment Upcoming Encounters Date Type Department Care Team (Late st Contact Info) Description 05/12/2024 11:30 AM RECORDS CUSTODIAN Office Visit [facility] Oncology and Hematology - [place] [address] [facility] [address] [place] [address] Cristino Cason MD [address] [facility] [address] [place] [address] documented as of this encounter Visit Diagnoses Diagnosis Chronic anemia- Primary Anemia, unspecified Leukopenia, unspecified type documented in this encounter Care Teams Hand Spinner Relationship Specialty Start Date End Date Primo Hightower MD [address] [facility] [address] [facility] [address] [place] [address] PCP - General Family Practice 01/27/23 documented as of this encounter
== END 2024-03-22 08:55 | disposition home or self-care (01) ==
PROVIDERS: PCP Family Medicine; Visit Provider Surgery
DX: K21.9 Gastro-esophageal reflux disease without esophagitis (principal); Z01.812 Encounter for preprocedural laboratory examination
CPT/HCPCS: 88305; 88342

== ENCOUNTER 2024-06-09 12:18 | Outpatient (CLI) | payer MEDICARE, SELFPAY ==
[2024-06-09 12:28] LABS: Basophils Absolute Auto 0.1 K/mm3 (0.0-0.1); Basophils Percent Auto 2.2 % (0.2-1.2); Eosinophils Absolute Auto 0.2 K/mm3 (0-0.3); Eosinophils Percent Auto 4.4 % (0-4.4); Hematocrit 41.1 % (42.0-52.0); Hemoglobin 13.9 g/dL (14.0-18.0); Immature Granulocyte Absolute 0.01 K/mm3 (0.00-0.031); Immature Granulocyte Percent A 0.2 % (0-0.5); Lymphocytes Absolute Auto 1.19 K/mm3 (0.9-3.2); Lymphocytes Percent Auto 29.3 % (18.3-44.2); Mean Corpuscular HGB Conc 33.8 g/dl (32-36); Mean Corpuscular Hemoglobin 29.6 pg (26-34); Mean Corpuscular Volume 87.6 fl (80-100); Monocytes Absolute Auto 0.5 K/mm3 (0.1-0.6); Monocytes Percent Auto 12.1 % (2.6-8.5); Neutrophils Absolute Auto 2.1 K/mm3 (1.3-6.7); Neutrophils Percent Auto 51.8 % (45.5-73.1); Platelet Count Result 320 k/mm3 (150-375); Red Blood Count 4.69 M/mm3 (4.6-6.20); Red Cell Distribution Width 12.7 % (11.5-14.5); White Blood Count 4.1 K/mm3 (4.5-10.0)
[2024-06-09 12:30] LABS: Blood Urea Nitrogen 10 mg/dL (8-26); Carbon Dioxide 26 mmol/L (22-30); Chloride 104 mmol/L (98-109); Estimated Glomerular Filt Rate > 60; Glucose 124 mg/dL (70-105); Ionized Calcium (POC) 1.19 mmol/L (1.11-1.31); Potassium 3.9 mmol/L (3.5-4.9); Sodium 143 mmol/L (138-146)
--- OUTSIDE RECORDS SUMMARY | 2024-06-09 13:43 | XMS_ITS | Clinical Summary ---
Author Organization [facility] Rickie hankins Jareth Address [address] [place] [address] Care Team Providers Care Coater Smoking Pipe Name Role Phone Primo Hightower MD Primary Care Provider [phone] Allergies No known active allergies Medications atorvastatin (LIPITOR) 20 mg tablet Take 20 [...] Encounters Date Type Department Care Team Description 06/09/2024 1:00 PM CDT Office Visit [facility] Oncology and Hematology - [place] [address] [place] [address] Cristino Cason MD Chronic anemia (Primary Dx) 06/07/2024 Orders Only [facility] Oncology and Hematology - [place] [address] [place] [address] Cristino Cason MD Chronic anemia (Primary Dx) 05/11/2024 Orders Only [facility] Oncology and Hematology - [place] [address] [place] [address] Cristino Cason MD Chronic anemia (Primary Dx) 05/10/2024 Telephone [facility] Oncology and Hematology - [place] [address] [place] [address] Cristino Cason MD lab work for appointment from Last 3 Months Family History Relation Name Status Comments Father Mother Social History Tobacco Use Types Packs/Day Years Used Date Smoking Tobacco: Former Cigarettes Smokeless Tobacco: Never Tobacco Cessation:Counseling Given: Not Answered Alcohol Use Standard Drinks/Week Comments Yes 0 (1 standard drink = 0.6 oz pur e alcohol) Sex and Gender Information Value Date Recorded Sex Assigned at Not on file Legal Sex Male 12:01 PM CDT Gender Identity Not on file Sexual Orientation Not on file Last Filed Vital Signs Vital Sign Reading Time Taken Comments Blood Pressure 111/73 06/09/2024 12:56 PM CDT Pulse 68 06/09/2024 12:56 PM CDT Temperature 36.2 C (97.2 F) 06/09/2024 12:56 PM CDT Respiratory Rate 15 06/09/2024 12:56 PM CDT Oxygen Saturation 98% 06/09/2024 12:56 PM CDT Inhaled Oxygen Concentration - - Weight 76.9 kg (169 lb 9.6 oz) 06/09/2024 12:56 PM CDT Height 172.7 cm (5' 8 ) 01/27/2023 2:46 PM CDT Body Mass Index 25.79 01/27/2023 2:46 PM CDT Plan of Treatment Upcoming Encounters Date Type Department Care Team (Late st Contact Info) Description 06/15/2025 11:00 AM CDT Office Visit [facility] Oncology and Hematology - [place] [address] [place] [address] Cristino Cason MD [address] [facility] [address] [place] [address] Health Maintenance Due Date Last Done Comments Pre-Diabetes and Diabetes Screening 1960 DTAP/TDAP/TD VACCINES (1 - Tdap) 1978 COLORECTAL SCREENING 02/23/2004 Colorectal Cancer Screening 02/23/2004 FIT-DNA Q 3 years 02/23/2004 FIT/FOBT Q 1 year 02/23/2004 Flex Sig/CT Colonography Q 5 years 02/23/2004 PNEUMOCOCCAL VACCINE 50+ YEARS (1 of 1 - PCV) 02/23/20 09 ZOSTER VACCINE (1 of 2) 2009 INFLUENZA VACCINE (#1) 2023 Medicare Advantage ([place]) Prev entative Visit/Annual Wellness Visit 03/31/2024 RSV VACCINE (60+ or ) (1 - 1-dose 75+ series) 2034 Abdominal Aortic Aneurysm (AAA) Screening Completed 01/30/2023 Procedures Procedure Name Priority Date/Time Associated Diagnosis Comments COMPREHENSIVE METABOLIC PANEL Routine 06/07/2024 7:34 AM CDT VITAMIN B12 AND FOLATE Routine 7:34 AM CDT Chronic anemia FERRITIN Routine 06/07/2024 7:34 AM CDT Chronic anemia IRON, TIBC, AND PERCENT SATURATION Routine 06/07/2024 7:34 AM CDT Chronic anemia VITAMIN B12 AND FOLATE Routine 5 7:54 AM INSTRUMENTAL MUSIC TEACHER Chronic anemia IRON, TIBC, AND PERCENT SATURATION Routine 05/10/2024 7:54 AM INSTRUMENTAL MUSIC TEACHER Chronic anemia FERRITIN Routine 05/10/2024 7:54 AM INSTRUMENTAL MUSIC TEACHER Chronic anemia US ABDOMEN COMPLETE Routine 01/30/2023 1 1:44 AM CDT from Last 3 Months or Most Recently Relevant to Health Maintenance Results * VITAMIN B12 AND FOLATE (06/07/2024 7:34 AM CDT) Only the most recent of2 resultswithin the time period is included. VITAMIN B12 863 200 - 1100 pg/mL [facility] FOLATE, SERUM 6.0 ng/mL [facility] Comment: Reference Range Low: <3.4 Borderline: 3.4-5.4 Normal: >5.4 FASTING:YES FASTING: YES Test Performed at: [facility] [address] [address] Yahaira Saul MD Blood 06/07/2024 7:34 AM CDT 06/07/2024 7:39 AM CDT Cristino Cason MD CHEMISTRY ORDERABLES Final Resu lt Performing Organization Address [facility] Co de Phone Number [facility] [phone] [facility] [address] * IRON, TIBC, AND PERCENT SATURATION (06/07/2024 7:34 AM CDT) Only the most recent of2 resultswithin the time period is included. IRON 78 50 - 180 mcg/dL [facility] TIBC 257 250 - 425 mcg/dL (calc) [facility] IRON % SATURATION 30 20 - 48 % (calc) [facility] Comment: FASTING:YES FASTING: YES Test Performed at: [facility] [address] [place] [id number] Yahaira Saul MD Blood 06/07/2024 7:34 AM CDT 06/07/2024 7:39 AM CDT Cristino Cason MD CHEMISTRY ORDERABLES Final Resu lt Performing Organization Address City/[facility] Co de Phone Number [facility] [phone] [address] * FERRITIN (06/07/2024 7:34 AM CDT) Only the most recent of2 resultswithin the time period is included. FERRITIN 108 24 - 380 ng/mL [facility] Comment: Test Performed at: [employer] [address] Yahaira Saul MD Blood 06/07/2024 7:34 AM CDT 06/07/2024 7:39 AM CDT us Cristino Cason MD CHEMISTRY ORDERABLES Final Resu lt [facility] [phone] [facility] [address] [address] * COMPREHENSIVE METABOLIC PANEL (06/07/2024 7:34 AM CDT) GLUCOSE 99 65 - 99 mg/dL [facility] Comment: Fasting reference interval BUN 13 7 - 25 mg/dL [facility] CREATININE 0.72 0.70 - 1.35 mg/dL [facility] GFR 101 > OR = 60 mL/min/1. 73m2 [facility] BUN/CREAT RATIO SEE NOTE: 6 (calc) [facility] Comment: Not Reported: BUN and Creatinine are within reference range. SODIUM 140 135 - 146 mmol/L [facility] POTASSIUM 3.9 3.5 - 5.3 mmol/L [facility] CHLORIDE 105 98 - 110 mmol/L [facility] CO2 29 20 - 32 mmol/L [facility] CALCIUM 8.9 8.6 - 10.3 mg/dL [facility] TOTAL PROTEIN 6.7 6.1 - 8.1 g/dL [facility] ALBUMIN 4.0 3.6 - 5.1 g/dL [facility] GLOBULIN 2.7 1.9 - 3.7 g/dL (calc) [facility] ALBUMIN/GLOBULIN RATIO 1.5 1.0 - 2.5 (calc) [facility] BILIRUBIN TOTAL 0.2 0.2 - 1.2 mg/dL [facility] ALKALINE PHOSPHATASE 58 35 - 144 U/L [facility] AST 14 10 - 35 U/L [facility] ALT 19 9 - 46 U/L [facility] Comment: FASTING:YES FASTING: YES Test Performed at: [facility] [address] [address] Yahaira Saul 06/07/2024 7:34 AM CDT 06/07/2024 7:39 AM CDT Cristino Cason MD CHEMISTRY ORDERABLES Final Resu lt [facility] [phone] [facility] [id number] [place] [address] * US ABDOMEN COMPLETE (01/30/2023 11:44 AM CDT) Anatomical Region Laterality Modality Abdomen Other Cristino Cason MD US ORDERABLES Final Result from Last 3 Months or Most Recently Relevant to [place] [address] [facility] [id number] Care Teams Coater Smoking Pipe Relationship Specialty Start Date End Date Primo Hightower MD [address] [facility] [address] [place] [address] PCP - General Family Practice 01/27/23
--- OUTSIDE RECORDS SUMMARY | 2024-06-09 13:43 | XMS_ITS | Encounter Summary ---
Author Organization [facility] RAMANA Toribio [facility] Address [address] [place] [address] Care Team Providers Care Sharepoint Analyst Name Role Phone Primo Hightower MD Primary Care Provider [phone] Reason for Visit * Reason Comments Follow Up Encounter Details Date Type Department Care Team (Late st Contact Info) Description 06/09/2024 1:00 PM CDT Office Visit [facility] Oncology and Hematology - [place] [address] [facility] [address] [place] [address] Cristino Cason MD [address] [facility] [address] [place] [address] Chronic anemia (Primary Dx) Social [...] 9.6 oz) 06/09/2024 12:56 PM CDT Height - - Body Mass Index 25.79 01/27/2023 2:46 PM CDT documented in this encounter Progress Notes * Cristino Cason MD - 06/09/2024 1:11 PM CDT HEMATOLOGY / ONCOLOGY PROGRESS NOTE Patient Identification: Name: Monty Rodarte Age: 64 y.o. 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 Since the last visit he has retired. Denies any fevers and chills. Denies any tiredness and fatigue. Weight and appetite stable. No other new complaints. Review of system [...] Integumentary system: no lymphadenopathy, sweats, flushing Musculoskeletal: mild generalized musculoskeletal discomfort Neurological: Patient did not mention blurry or [...] 87 iron 108 saturation 35% B12 941 Labs from June 07 showed creatinine 0.7 calcium 8.9 total bilirubin 0.2 WBC 4.1 hemoglobin 13.9 platelet 320,000 neutrophil 51% lymphocytes 29% iron 78 saturation 30 ferritin 108 vitamin B12 863 Assessment: Plan: There are no active problems to display for this patient. Autoimmune leukopenia. DILEEP came back positive. Spleen ultrasound is normal. Patient is clinically asymptomatic. Labs showed improvement in the WBC count but slightly more anemia. He is asymptomatic. ANC stable. Will continue to observe and see him back on yearly basis. Anemia secondary to iron and B12 deficiency. Hemoglobin stable. Iron level and B12 level is normal.He will continue oral iron once a day along with vitamin C and vitamin B12 1 mg daily. Generalized musculoskeletal discomfort. Stable. 06/09/2024 Cristino Cason MD documented in this encounter Plan of Treatment Upcoming Encounters Date Type Department Care Team (Late st Contact Info) Description 06/15/2025 11:00 AM CDT Office Visit [facility] Oncology and Hematology - [place] [address] [facility] [address] [place] [address] Cristino Cason MD [address] [facility] [address] [place] [address] Scheduled Orders Name Type Priority Associated Diagnoses Orde r Schedule CBC WITH DIFFERENTIAL Lab Stat Chronic anemia Expected: 06/09/2025, Expires: 06/09/2025 BASIC METABOLIC PANEL Lab Stat Chronic anemia Expected: 06/09/2025, Expires: 06/09/2025 FERRITIN Lab Routine Chronic anemia Expected: 06/09/2025, Expires: 06/09/2025 IRON, TIBC, AND PERCENT SATURATION Lab Routine Chronic anemia Expected: 06/09/2025, Expires: 06/09/2025 VITAMIN B12 LEVEL Lab Routine Chronic anemia Expected: 06/09/2025, Expires: 06/09/2025 documented as of this encounter Visit Diagnoses Diagnosis Chronic anemia- Primary Anemia, unspecified documented in this encounter Care Teams Sharepoint Analyst Relationship Specialty Start Date End Date Primo Hightower MD [address] [facility] [address] [place] [address] PCP - General Family Practice 01/27/23 documented as of this encounter
== END 2024-06-09 12:19 | disposition home or self-care (01) ==
LOC: ANHLAB 12:18
PROVIDERS: PCP Family Medicine; Visit Provider Internal Medicine Hematology & Oncology
DX: D64.9 Anemia, unspecified (principal)
CPT/HCPCS: 36415; 80047; 85025

== ENCOUNTER 2025-01-11 11:14 | Outpatient (CLI) | payer MEDICARE, SELFPAY ==
--- NOTE | ~2025-01-11 | CT_ITS ---
EXAMINATION:CT lung screening DATE: 01/11/2025 11:35 INDICATION: Personal history of nicotine dependence. TECHNIQUE: Computed tomography (CT) of the chest was performed without intravenous contrast. Automated exposure control and iterative reconstruction technique were employed. The dose-length product (DLP) was 127.51 mGy-cm. COMPARISON: Chest CT 12/22/2023 FINDINGS: There is mild emphysema. There is a stable 4 mm nodule in right middle lobe. There is a 3 mm nodule in left upper lobe. There is a stable 4 mm nodule in left upper lobe. There is mild scarring at the lung apices. There is mild scarring in paraspinal right lower lobe. There is mild atelectasis bilaterally. A calcified left lung nodule is consistent with old granulomatous disease. No pleural effusion. The heart size is normal. There are coronary artery calcifications. No pericardial effusion. There is moderate thoracic spondylosis. There is mild chronic anterior wedging of multiple vertebral bodies. IMPRESSION: 1. Lung-RADS category 2: Benign appearance or behavior. Continue annual screening with noncontrast low-dose chest CT in 12 months. Reviewed, dictated and finalized at location E. IMPRESSION: 1. Lung-RADS category 2: Benign appearance or behavior. Continue annual screeni ng with noncontrast low-dose chest CT in 12 months.
--- OUTSIDE RECORDS SUMMARY | 2025-01-11 13:21 | XMS_ITS | Clinical Summary ---
Author Organization [facility] Address [address] [place] [address] Care Team Providers Care Mesmerist Name Role Phone Primo Hightower MD Primary Care Provider [phone] Allergies No known active allergies Medications atorvastatin [...] Encounters Date Type Department Care Team Description 12/07/2024 External Device Data ST[facility] ABSTRACTION Provider, Abstract [...] 12:56 PM CDT Height 172.7 cm (5' 8) 01/27/2023 2:46 PM CDT Body Mass Index 25.79 01/27/2023 2:46 PM CDT Plan of Treatment Upcoming Encounters Date Type Department Care Team (Late st Contact Info) Description 06/15/2025 11:00 AM CDT Office Visit [facility] Oncology and Hematology [facility] [place] [address] [facility] [address] [place] [address] Cristino Cason MD [address] [facility] [address] [place] [address] Health Maintenance Due Date Last [...] (1 of 2) 2009 INFLUENZA VACCINE (#1) 2024 RSV VACCINE (60+ or ) (1 - 1-dose 75+ series) 2034 Abdominal Aortic Aneurysm (AAA) Screening Completed 01/30/2023 Procedures Procedure Name Priority Date/Time Associated Diagnosis Comments US ABDOMEN COMPLETE Routine 01/30/2023 11:44 AM CDT from Last 3 Months or Most Recently Relevant to Health Maintenance Results * US ABDOMEN COMPLETE (01/30/2023 11:44 AM CDT) Anatomical Region Laterality Modality Abdomen Ultrasound us Cristino Cason MD US ORDERABLES Final Result from Last 3 Months or Most Recently Relevant to Health Maintenance Insurance [facility] [id number] Care Teams Mesmerist Relationship Specialty Start Date End Date Primo Hightower MD [address] [facility] [address] [place] [address] PCP - General Family Practice 01/27/23
== END 2025-01-11 11:15 | disposition home or self-care (01) ==
PROVIDERS: PCP Family Medicine; Visit Provider Physician Assistant
DX: Z12.2 Encounter for screening for malignant neoplasm of respiratory organs (principal); Z87.891 Personal history of nicotine dependence
CPT/HCPCS: 71271